=== PATIENT | female | born 1995 | race Caucasian/White ===

== ENCOUNTER 2016-09-08 21:42 | Observation (INO) | payer OTHER, MEDICAID ==
[2016-09-09] MEDS ORDERED: ONDANSETRON HCL INJ/PF 4 MG/2 ML SDV IV ONE (01:34)
[2016-09-09] MEDS ORDERED: NORMAL SALINE 1000 ML 1,000 ML IV ONE ×2 (01:34→05:46)
[2016-09-09] MEDS ORDERED: PROMETHAZINE HCL INJ 25 MG/1 ML VIAL IM ONE (01:34)
[2016-09-09] MEDS ORDERED: PROMETHAZINE HCL INJ 50 MG/1 ML VIAL IM ONE (03:07)
[2016-09-09] MEDS ORDERED: PROMETHAZINE HCL INJ 50 MG/1 ML VIAL ONE (03:21)
[2016-09-09] MEDS ORDERED: MAG HYDROX/AL HYDROX/SIMETH SUSP 30 ML UDCUP PO ONE (03:30)
--- NOTE | 2016-09-09 03:34 | ER Document Report ---
ED General - General Chief Complaint: Nausea/Vomiting/Diarrhea Stated Complaint: NAUSEA/VOMITING Time Seen by Provider: 09/09/16 01:22 Notes: Patient is a 20-year-old female who is well-known to the ER due to history of nausea vomiting. She is to be seen here very frequently during her because she had multiple times of coming in with intractable vomiting. She was worked up extensively here he also had psychiatric consult due to a lot of felt to be psychiatric related. Patient returns today saying that she is having vomiting again and is unsure if she is again. She denies any fevers. No significant abdominal pain. She has had some diarrhea. No other complaints at this time. No dysuria. No abnormal vaginal discharge or bleeding. TRAVEL OUTSIDE OF THE [place] IN LAST 30 DAYS: No - Related Data Allergies/Adverse Reactions: No Known Allergies Allergy (Verified 02/21/16 13:33) Past Medical History - Social History Smoking Status: Never Smoker Frequency of alcohol use: None Drug Abuse: None Family History: Reviewed & Not Pertinent - Past Medical History Cardiac Medical History: Denies: Hx Congestive Heart Failure, Hx Heart Attack, Hx Hypertension Pulmonary Medical History: Reports: Hx Asthma Denies: Hx Bronchitis, Hx COPD, Hx Pneumonia, Hx Tuberculosis Neurological Medical History: Denies: Hx Seizures Renal/ Medical History: Denies: Hx End Stage Renal Disease, Hx Kidney Stones, Hx Peritoneal Dialysis GI Medical History: Reports: Hx Gastroesophageal Reflux Disease. Denies: Hx Ulcer Musculoskeltal Medical History: Denies Hx Arthritis Psychiatric Medical History: Denies: Hx Bipolar Disorder, Hx Depression, Hx Schizophrenia Past Surgical History: Reports: Hx Adenoidectomy, Hx Tonsillectomy - Immunizations Hx Diphtheria, Pertussis, Tetanus Vaccination: Yes Review of Systems - Review of Systems Notes: My Normal Review Basic REVIEW OF SYSTEMS: CONSTITUTIONAL : Denies fever, chills, or sweats. Denies recent illness. CARDIOVASCULAR: Denies chest pain. RESPIRATORY: Denies cough, cold, or chest congestion. Denies shortness of breath, difficulty breathing, or wheezing. GASTROINTESTINAL: Denies abdominal pain. vomiting and diarrhea. GENITOURINARY: Denies difficulty urinating, painful urination, burning, frequency, or blood in urine. FEMALE GENITOURINARY: Denies vaginal bleeding, abnormal or irregular periods. MUSCULOSKELETAL: Denies neck or back pain or joint pain or swelling. SKIN: Denies rash or skin lesions. NEUROLOGICAL: Denies altered mental status or loss of consciousness. Denies headache. Denies weakness or paralysis or loss of use of either side. Denies problems with gait or speech. Denies sensory or motor loss. ALL OTHER SYSTEMS REVIEWED AND NEGATIVE. Physical Exam - Vital signs Vitals: Temp Pulse Resp BP Pulse Ox 98.1 F 94 H 15 111/70 100 09/08/16 21:52 09/08/16 21:52 09/08/16 21:52 09/08/16 21:52 09/08/16 21:52 - Notes Notes: General Appearance: Well nourished, alert, cooperative, no acute distress, no obvious discomfort. Into the room the patient is sleeping in the bed comfortably. When I wake her up she starts to shake and says she chills. Vitals: reviewed, See vital signs table. Head: no swelling or tenderness to the head Eyes: PERRL, EOMI, Conjuctiva clear Mouth: No decreasd moisture Throat: No tonsillar inflammation, No airway obstruction, No lymphadenopathy Lungs: No wheezing, No rales, No rhonci, No accessory muscle use, good air exchange bilaterally. Heart: Normal rate, Regular rythm, No murmur, no rub Abdomen: Normal BS, soft, No rigidity, No abdominal tenderness, No guarding, no rebound, no abdominal masses, no organomegaly Extremities: strength 5/5 in all extremities, good pulses in all extremities, no swelling or tenderness in the extremities, no edema. Skin: warm, dry, appropriate color, no rash Neuro: speech clear, oriented x 3, normal affect, responds appropriately to questions. Course - Vital Signs Vital signs: Temp Pulse Resp BP Pulse Ox 98.8 F 93 H 13 116/66 97 09/09/16 01:57 09/09/16 01:57 09/09/16 01:57 09/09/16 01:57 09/09/16 01:57 - Laboratory Result Diagrams: 09/09/16 03:43 09/09/16 03:43 Laboratory results interpreted by me: 09/09/16 09/09/16 09/09/16 03:00 03:43 03:43 Carbon Dioxide 18 L Beta HCG, Quant 14707.00 H Urine Protein 30 H Urine Ketones 80 H Urine Ascorbic Acid 40 H Urine HCG, Qual POSITIVE H - Transfer of Care Notes: 09/09/16 05:48 Patient is again. Initially seen as if her vomiting was under control. I was can discharge her home with Phenergan as well as likely just. Patient initially was agreeable to this. When they went to discharge her sister from [facility] if she had to vomit again and then said that she did not remember talking to me about being discharged home. She says she does not feel she can go home and she feels unwell. Patient's ketones are 80 on her urine. Her CO2 is 18. I have ordered an ultrasound to see if how far along she is in . She denies any other infectious symptoms. I did speak with Dr. Ritter, piercing mill operator on-call, who agrees to admit the patient. Dictation of this chart was performed using voice recognition software; therefore, there may be some unintended grammatical errors. Discharge - Discharge Clinical Impression: Hyperemesis gravidarum Condition: Stable Disposition: ADMITTED OBSERVATION Admitting Provider: Dr. Chahal Unit Admitted: Post Additional Instructions: Hyperemesis Gravidarum Hyperemesis gravidarum is the medical term for severe vomiting during . We don't know exactly why it occurs, but it's a common problem. Dehydration can occur. This reduces blood flow to the placenta, decreasing the baby's nourishment. The baby will also become dehydrated. There can be harmful changes in blood sodium, potassium, or acid balance. Our goal is to correct, and prevent, dehydration. For severe cases, we give IV fluids. Antinausea medication will be prescribed. (Don't be concerned about " defects" -- the risk to you and your baby from the hyperemesis is the biggest problem. The antinausea medication is very safe at this stage of .) Call the doctor if you have vaginal bleeding, abdominal pain, severe lightheadedness or weakness, or other alarming symptoms. Please return to the ER immediately if you have intractable vomiting, fevers, abdominal pain, vaginal bleeding, or feel unwell. Please follow up closely with your DATA SECURITY ADMINISTRATOR physician for further treatment and evaluation of your . Please do not smoke cigarettes or marijuana while . Avoid alcohol. Start taking vitamins. Prescriptions: Doxylamine/Pyridoxine HCl [Abdirahman Garrison 10-10 mg Tablet] 1 each PO TID #60 tablet. Promethazine HCl [Phenergan 25 mg Tablet] 1 tab PO Q6H PRN #15 tablet PRN Reason:
[2016-09-09 03:35] LABS: APPEARANCE,URINE SLIGHTLY-CLOUDY; BILIRUBIN,URINE NEGATIVE (NEGATIVE); GLUCOSE, URINE NEGATIVE (NEGATIVE); KETONES,URINE 80 mg/dL (NEGATIVE); LEUKOCYTE ESTERASE,URINE NEGATIVE (NEGATIVE); NITRITE,URINE NEGATIVE (NEGATIVE); PROTEIN,URINE 30 mg/dL (NEGATIVE); URINE SPECIFIC GRAVITY 1.031; UROBILINOGEN,URINE NEGATIVE mg/dL (<2.0)
[2016-09-09 04:00] LABS: ABSOLUTE LYMPHOCYTES (AUTO) 1.3 10^3/uL (0.5-4.7); ABSOLUTE MONOCYTES (AUTO) 0.7 10^3/uL (0.1-1.4); ABSOLUTE NEUT (AUTO) 7.1 10^3/uL (1.7-8.2); BASOPHILS % (AUTO) 0.2 % (0-2); HEMATOCRIT 38.7 % (36.0-47.0); HEMOGLOBIN 12.6 g/dL (12.0-15.5); HGB HCT DIFFERENCE -0.9; LYMPHOCYTES % (AUTO) 13.9 % (13-45); MEAN CORPUSCULAR HEMOGLOBIN 28.3 pg (27.0-33.4); MEAN CORPUSCULAR HGB CONC 32.6 g/dL (32.0-36.0); MEAN CORPUSCULAR VOLUME 87 fl (80-97); MONOCYTES % (AUTO) 8.1 % (3-13); RED BLOOD COUNT 4.46 10^6/uL (3.72-5.28); RED CELL DISTRIBUTION WIDTH 13.6 % (11.5-14.0); SEGMENTED NEUTROPHILS % (AUTO) 77.8 % (42-78); WHITE BLOOD COUNT 9.2 10^3/uL (4.0-10.5)
[2016-09-09 04:04] LABS: ALANINE AMINOTRANSFERASE 25 U/L (5-35); ALBUMIN 4.1 g/dL (3.7-5.6); ALKALINE PHOSPHATASE 100 U/L (50-135); ANION GAP 16 (5-19); ASPARTATE AMINO TRANSFERASE 18 U/L (5-30); BILIRUBIN,DIRECT 0.2 mg/dL (0.0-0.4); BILIRUBIN,TOTAL 0.7 mg/dL (0.2-1.3); BLOOD UREA NITROGEN 10 mg/dL (7-20); CALCIUM 8.8 mg/dL (8.4-10.2); CARBON DIOXIDE 18 mmol/L (22-30); CHLORIDE 106 mmol/L (98-107); CREATININE RESULT 0.56 mg/dL (0.52-1.25); GLUCOSE 104 mg/dL (75-110); LIPASE 25.3 U/L (23-300); POTASSIUM 3.6 mmol/L (3.6-5.0); SODIUM 139.7 mmol/L (137-145)
[2016-09-09] MEDS ORDERED: METOCLOPRAMIDE HCL INJ/PF 10 MG/2 ML SDV IV ONE (04:07)
[2016-09-09 04:21] LABS: URINE BARBITURATES SCREEN NEGATIVE; URINE METHADONE SCREEN NEGATIVE; URINE OPIATES LOW NEGATIVE; URINE PHENCYCLIDINE SCREEN NEGATIVE
[2016-09-09] MEDS ORDERED: POTASSI CL 20 MEQ/D5-1/2NS 1L 1000 ML IV PRN (06:53)
--- NOTE | 2016-09-09 07:08 | RADIOLOGY REPORT (SQ) ---
EXAM DESCRIPTION: U/S OB TRANSVAG W/DOPPLER COMPLETED DATE/TIME: 09/09/2016 6:54 am REASON FOR STUDY: COMPARISON: None. TECHNIQUE: Transvaginal static and realtime grayscale images acquired of the pelvis. Additional nikky cted spectral and color Doppler images recorded. All images stored on PACs. [facility] [place] LIMITATIONS: Suboptimal bladder emptying. FINDINGS: FETUS: Living intrauterine . EGA: 6 weeks 5 days. RONEL: 04/30/2017. FHR: 115 beats per minute. SUBCHORIONIC BLEED: No. SIZE OF BLEED: Not applicable. UTERUS: No masses. No anomalies. CERVICAL LENGTH: 2.7 cm Closed. RIGHT ADNEXA: Normal ovary with normal vascular flow. No adnexal free fluid. No adnexal masses. 4.6 cm. LEFT ADNEXA: Normal ovary with normal vascular flow. No adnexal free fluid. No adnexal masses. 2.6 cm including a 1.6 cm likely corpus luteal cyst. FREE FLUID: None. OTHER: No other significant finding. IMPRESSION: LIVING INTRAUTERINE . EGA 6 weeks 5 days Trimester of : First - 0 to 13 weeks. TECHNICAL DOCUMENTATION: JOB ID: [id number] [employer]- All Rights Reserved
[2016-09-09] MEDS: PYRIDOXINE HCL 50 MG TABLET PO SCH ×2 (09:26→16:04)
[2016-09-09] MEDS: ONDANSETRON HCL INJ/PF 4 MG/2 ML SDV IV SCH ×2 (09:26→18:59)
[2016-09-09] MEDS: FAMOTIDINE INJ/PF 20 MG/2 ML SDV IV SCH ×2 (09:26→18:59)
[2016-09-09] MEDS ORDERED: [UNRECOGNIZED DRUG - REMARK] IV SCH ×2 (10:00)
[2016-09-09] MEDS ORDERED: [UNRECOGNIZED DRUG - REMARK] IV SCH ×3 (10:00)
[2016-09-09] MEDS: METOCLOPRAMIDE HCL 10 MG TABLET PO SCH ×2 (10:30→16:05)
--- NOTE | 2016-09-09 18:05 | PDOC DISCHARGE SUMMARY ---
Final Diagnosis Discharge Date: 09/09/16 - Final Diagnosis (1) Hyperemesis gravidarum with dehydration Is this a current diagnosis for this admission?: Yes Discharge Data - Discharge Medication Home Medications: Metoclopramide HCl [Reglan 10 mg Tablet] 10 mg PO ACHS #30 tablet 09/09/16 Gestational Age: 14 Admission Note: She was admitted for nausea and vomiting in early . She is now feeling much better and wishes to go home with reglan and zofran. She will followup as scheduled. - Diagnosis Test Laboratory: Temp Pulse Resp BP Pulse Ox 98.6 F 79 15 80/40 L 98 09/09/16 15:47 09/09/16 15:47 09/09/16 15:47 09/09/16 15:47 09/09/16 15:47 - Discharge information/Instructions Discharge Activity: Activity As Tolerated Discharge Diet: As Tolerated Disposition: HOME, SELF-CARE Follow up with: [facility] - Follow up with OB provider as scheduled. in: 1, Weeks - followup with ob provider as scheduled
[2016-09-09 18:45] VITALS: BP 108/78
== END 2016-09-09 19:30 | disposition home or self-care (01) ==
LOC: ER 21:42 → 2S 09-09 06:10 → UNDOADMOB 09-09 07:13 → EH 09-09 07:13 → 2S 09-09 08:05
PROVIDERS: ADMIT Specialist; ATTEND Specialist
DX: O21.1 Hyperemesis gravidarum with metabolic disturbance (principal); O99.341 Other mental disorders complicating pregnancy, first trimester; F29 Unspecified psychosis not due to a substance or known physiological condition; Z3A.01 Less than 8 weeks gestation of pregnancy; Z87.19 Personal history of other diseases of the digestive system
CPT/HCPCS: 99285; 96361; 96374; 96375; 36415; 84702; 83690; 85025; 81025; 80053; 81001; 80307; 76817; 93976; J2765; J3480 ×2; J2550; J3490 ×2; J2405; J7030; S0028

== ENCOUNTER 2016-10-04 13:42 | Emergency (ER) | payer OTHER, MEDICAID ==
[2016-10-04] MEDS ORDERED: METOCLOPRAMIDE HCL 10 MG TABLET PO ONE (13:53)
[2016-10-04] MEDS ORDERED: ONDANSETRON 4 MG TAB.RAPDIS PO ONE (13:53)
--- NOTE | 2016-10-04 14:04 | ER Document Report ---
ED GI/ - General Chief Complaint: Nausea/Vomiting/Diarrhea Stated Complaint: VOMITING,NAUSEA Time Seen by Provider: 10/04/16 13:52 Mode of Arrival: Ambulatory Information source: Patient Notes: Patient is a 20-year-old who presents to the ER approximately 9 weeks with nausea vomiting and diarrhea 2 days. Patient states that her bowel movement this morning was white, sam in color. She admits to eating calamari for the first time yesterday. She denies fever/chills, denies abd pain. TRAVEL OUTSIDE OF THE [place] IN LAST 30 DAYS: No - Related Data Allergies/Adverse Reactions: No Known Allergies Allergy (Verified 02/21/16 13:33) Past Medical History - General Information source: Patient - Social History Smoking Status: Unknown if Ever Smoked Family History: Reviewed & Not Pertinent - Past Medical History Cardiac Medical History: Denies: Hx Congestive Heart Failure, Hx Heart Attack, Hx Hypertension Pulmonary Medical History: Reports: Hx Asthma Denies: Hx Bronchitis, Hx COPD, Hx Pneumonia, Hx Tuberculosis Neurological Medical History: Denies: Hx Seizures Renal/ Medical History: Denies: Hx End Stage Renal Disease, Hx Kidney Stones, Hx Peritoneal Dialysis GI Medical History: Reports: Hx Gastroesophageal Reflux Disease. Denies: Hx Ulcer Musculoskeltal Medical History: Denies Hx Arthritis Psychiatric Medical History: Denies: Hx Bipolar Disorder, Hx Depression, Hx Schizophrenia Past Surgical History: Reports: Hx Adenoidectomy, Hx Tonsillectomy - Immunizations Hx Diphtheria, Pertussis, Tetanus Vaccination: Yes Review of Systems - Review of Systems Constitutional: No symptoms reported EENT: No symptoms reported Cardiovascular: No symptoms reported Respiratory: No symptoms reported Gastrointestinal: See HPI Genitourinary: No symptoms reported Female Genitourinary: No symptoms reported Musculoskeletal: No symptoms reported Skin: No symptoms reported Hematologic/Lymphatic: No symptoms reported Neurological/Psychological: No symptoms reported Physical Exam - Notes Notes: PHYSICAL EXAMINATION: GENERAL: Well-appearing and in no acute distress. HEAD: Atraumatic, normocephalic. EYES: Pupils equal round and reactive to light, extraocular movements intact, sclera anicteric, conjunctiva are normal. NECK: Normal range of motion, supple without lymphadenopathy LUNGS: CTAB and equal. No wheezes rales or rhonchi. HEART: Regular rate and rhythm without murmurs ABDOMEN: Soft, no tenderness. No guarding, no rebound BACK: no vertebral tenderness, normal ROM GI/: no CVA tenderness EXTREMITIES: Normal range of motion, no pitting edema. No cyanosis. NEUROLOGICAL: Cranial nerves grossly intact. Normal sensory/motor exams. PSYCH: Normal mood, normal affect. SKIN: Warm, Dry, normal turgor, no rashes or lesions noted Discharge - Discharge Clinical Impression: Nausea/vomiting in Condition: Stable Disposition: HOME, SELF-CARE Additional Instructions: Return immediately for any new or worsening symptoms. Follow up with primary care provider, call tomorrow to make followup appointment. Prescriptions: Metoclopramide HCl [Reglan 10 mg Tablet] 1 - 2 tab PO ASDIR PRN #25 tablet PRN Reason: Ondansetron [Zofran Odt 4 mg Tablet] 1 - 2 tab PO Q4H PRN #30 tab.rapdis PRN Reason: For Nausea/Vomiting
[2016-10-04] MEDS ORDERED: ONDANSETRON HCL INJ/PF 4 MG/2 ML SDV IV ONE (14:10)
[2016-10-04] MEDS ORDERED: METOCLOPRAMIDE HCL INJ/PF 10 MG/2 ML SDV IV ONE (14:10)
[2016-10-04 14:53] VITALS: BP 111/73
== END 2016-10-04 14:52 | disposition home or self-care (01) ==
LOC: ER 13:42
DX: O21.9 Vomiting of pregnancy, unspecified (principal); R19.7 Diarrhea, unspecified; Z3A.09 9 weeks gestation of pregnancy
CPT/HCPCS: 99283; 96374; 96375; J2765; J2405

== ENCOUNTER 2016-10-05 03:13 | Emergency (ER) | payer OTHER ==
[2016-10-05] MEDS ORDERED: ONDANSETRON HCL INJ/PF 4 MG/2 ML SDV IV ONE ×2 (03:17→03:48)
[2016-10-05] MEDS ORDERED: METOCLOPRAMIDE HCL INJ/PF 10 MG/2 ML SDV IV ONE (03:17)
[2016-10-05] MEDS ORDERED: NORMAL SALINE 1000 ML 1,000 ML IV ONE (03:17)
[2016-10-05] MEDS ORDERED: DIPHENHYDRAMINE HCL 50 MG/ML VIAL IV ONE (03:18)
[2016-10-05 03:38] LABS: ABSOLUTE LYMPHOCYTES (AUTO) 1.2 10^3/uL (0.5-4.7); ABSOLUTE MONOCYTES (AUTO) 0.7 10^3/uL (0.1-1.4); ABSOLUTE NEUT (AUTO) 12.4 10^3/uL (1.7-8.2); BASOPHILS % (AUTO) 0.1 % (0-2); HEMATOCRIT 39.1 % (36.0-47.0); HEMOGLOBIN 12.9 g/dL (12.0-15.5); HGB HCT DIFFERENCE -0.4; LYMPHOCYTES % (AUTO) 8.4 % (13-45); MEAN CORPUSCULAR HEMOGLOBIN 28.2 pg (27.0-33.4); MEAN CORPUSCULAR HGB CONC 33.1 g/dL (32.0-36.0); MEAN CORPUSCULAR VOLUME 85 fl (80-97); RED BLOOD COUNT 4.59 10^6/uL (3.72-5.28); RED CELL DISTRIBUTION WIDTH 13.8 % (11.5-14.0); SEGMENTED NEUTROPHILS % (AUTO) 86.5 % (42-78); WHITE BLOOD COUNT 14.4 10^3/uL (4.0-10.5)
[2016-10-05] MEDS ORDERED: MORPHINE SULFATE 10 MG/ML INJ IV ONE (03:48)
[2016-10-05] MEDS ORDERED: METOCLOPRAMIDE HCL ORAL SOLN 10 MG/10 ML UDCUP PO ONE (03:49)
[2016-10-05] MEDS ORDERED: MAG HYDROX/AL HYDROX/SIMETH SUSP 30 ML UDCUP PO ONE (03:49)
[2016-10-05] MEDS ORDERED: LIDOCAINE 2% VISCOUS SOLN 20 ML UDCUP PO ONE (03:49)
[2016-10-05] MEDS ORDERED: FAMOTIDINE INJ/PF 20 MG/2 ML SDV IV ONE (03:51)
[2016-10-05 04:04] VITALS: BP 127/64
--- NOTE | 2016-10-05 04:04 | ER Document Report ---
ED General - General Chief Complaint: Nausea/Vomiting Stated Complaint: NAUSEA/VOMITING Time Seen by Provider: 10/05/16 03:16 Notes: Patient is a 20-year-old female who presents to the ER with complaint of epigastric abdominal pain and vomiting. She is well-known to the ED due to a previous history of hyperemesis gravidarum. She was admitted back in August. She was placed on Reglan and Zofran. She says she ran out of these medications and has been vomiting. She was seen in the ER yesterday and given a prescription for Zofran and Reglan but did not have it filled. She therefore came to the ER. On previous drug screen she has been positive for marijuana but patient denies smoking marijuana anymore. TRAVEL OUTSIDE OF THE [place] IN LAST 30 DAYS: No - Related Data Allergies/Adverse Reactions: No Known Allergies Allergy (Verified 02/21/16 13:33) Past Medical History - Social History Smoking Status: Never Smoker Frequency of alcohol use: None Drug Abuse: None Family History: Reviewed & Not Pertinent - Past Medical History Cardiac Medical History: Denies: Hx Congestive Heart Failure, Hx Heart Attack, Hx Hypertension Pulmonary Medical History: Reports: Hx Asthma Denies: Hx Bronchitis, Hx COPD, Hx Pneumonia, Hx Tuberculosis Neurological Medical History: Denies: Hx Seizures Renal/ Medical History: Denies: Hx End Stage Renal Disease, Hx Kidney Stones, Hx Peritoneal Dialysis GI Medical History: Reports: Hx Gastroesophageal Reflux Disease. Denies: Hx Ulcer Musculoskeltal Medical History: Denies Hx Arthritis Psychiatric Medical History: Denies: Hx Bipolar Disorder, Hx Depression, Hx Schizophrenia Past Surgical History: Reports: Hx Adenoidectomy, Hx Tonsillectomy - Immunizations Hx Diphtheria, Pertussis, Tetanus Vaccination: Yes Review of Systems - Review of Systems Notes: My Normal Review Basic REVIEW OF SYSTEMS: CONSTITUTIONAL : Denies fever, chills, or sweats. Denies recent illness. EENT: Denies eye, ear, throat, or mouth pain or symptoms. Denies nasal or sinus congestion. CARDIOVASCULAR: Denies chest pain. RESPIRATORY: Denies cough, cold, or chest congestion. Denies shortness of breath, difficulty breathing, or wheezing. GASTROINTESTINAL: Epigastric abdominal pain. Vomiting. GENITOURINARY: Denies difficulty urinating, painful urination, burning, frequency, or blood in urine. FEMALE GENITOURINARY: Denies vaginal bleeding, abnormal or irregular periods. LMP: Currently MUSCULOSKELETAL: Denies neck or back pain or joint pain or swelling. SKIN: Denies rash or skin lesions. NEUROLOGICAL: Denies altered mental status or loss of consciousness. Denies headache. Denies weakness or paralysis or loss of use of either side. Denies problems with gait or speech. Denies sensory or motor loss. ALL OTHER SYSTEMS REVIEWED AND NEGATIVE. Physical Exam - Vital signs Vitals: Temp Pulse Resp BP Pulse Ox 98.4 F 78 22 127/64 H 98 10/05/16 03:23 10/05/16 03:23 10/05/16 03:23 10/05/16 03:23 10/05/16 03:23 - Notes Notes: General Appearance: Well nourished, alert, cooperative, no acute distress, no obvious discomfort. Dry heaving and spitting into an emesis bag. Vitals: reviewed, See vital signs table. Head: no swelling or tenderness to the head Eyes: PERRL, EOMI, Conjuctiva clear Mouth: No decreasd moisture Throat: No tonsillar inflammation, No airway obstruction, No lymphadenopathy Abdomen: Normal BS, soft, No rigidity, mild to moderate epigastric abdominal tenderness to palpation, No guarding, no rebound, no abdominal masses, no organomegaly Extremities: strength 5/5 in all extremities, good pulses in all extremities, no swelling or tenderness in the extremities, no edema. Skin: warm, dry, appropriate color, no rash Neuro: speech clear, oriented x 3, normal affect, responds appropriately to questions. Course - Re-evaluation Re-evalutation: 10/05/16 05:56 Patient has been reevaluated many times. She has not vomited in several hours. She drank liquids without vomiting. I went and talked her informed her that she was being discharged. When I first reviewed her laboratory findings with her, she woke up and she agreed to being discharged. When the nurse brought her the discharge paperwork she started crying saying that she did not want to leave. I went back and talked to her again. Patient says that she does not want to be discharged and she wants to stay. Patient has done this multiple times in previous visits the ER for the same thing. It is really unclear to me as to why she initially always agrees to discharge but then immediately starts crying becoming very emotionally upset whenever we bring her to discharge paperwork. During her previous admissions in the past she has been evaluated by psychiatry. She herself denies that she has any psychiatric issue. I asked her at length if she felt safe at home or if there was dangerous at home and if that is why she did not want to go home. Patient says that she is safe at home and that that has nothing to do with it. I informed her that her electrolytes are normal and that she has not had any further vomiting and that we could discharge her home on the medications. She says that she still has some pain in the epigastric region even though she was denying this when I went and talked to her earlier. Patient says that she has always had pain in the epigastric region since she has been here and that she needs to stay because of this. I informed her that this is not an admittable reason to stay as the treatment for this is Tylenol and Pepcid which can be taken at home. I have also prescribed her Pepcid. At this time I do not feel the patient meets any criteria for admission (1. no further vomiting, 2. normal electrolytes and renal function, 3. benign abdominal exam) and she will be discharged home. She is encouraged to return to the ER if she has recurrent vomiting and the medications are not helping her. I strongly encouraged her to actually fill the medications this time and start taking them. I have discharged her home with a Zofran to go pack so that she has medications until her prescriptions are able to be filled. She denied any dysuria or urinary symptoms therefore I do not feel it is necessary to wait for a urine sample. Urinalysis was ordered but the patient urinated as soon as she got here and did not give us a urine sample. Dictation of this chart was performed using voice recognition software; therefore, there may be some unintended grammatical errors. 10/05/16 05:58 10/05/16 06:00 10/05/16 06:05 - Vital Signs Vital signs: Temp Pulse Resp BP Pulse Ox 98.4 F 78 22 127/64 H 98 10/05/16 03:23 10/05/16 03:23 10/05/16 03:23 10/05/16 03:23 10/05/16 03:23 - Laboratory Result Diagrams: 10/05/16 03:22 10/05/16 04:30 Laboratory results interpreted by me: 10/05/16 10/05/16 03:22 04:30 WBC 14.4 H Seg Neutrophils % 86.5 H Lymphocytes % 8.4 L Absolute Neutrophils 12.4 H Carbon Dioxide 19 L Creatinine 0.48 L Beta HCG, Quant 19601.00 H Procedures - Ultrasound/Bedside Ultrasound/Bedside Notes: 10/05/16 04:20 Bedside ultrasound shows an IUP with a heart rate of 172 bpm. Discharge - Discharge Clinical Impression: Hyperemesis gravidarum Condition: Good Disposition: HOME, SELF-CARE Additional Instructions: Please fill the prescriptions for the reglan and Zofran that were giving to you earlier. Please take the pepcid as well. The pepcid will help with your burning in your stomach. please return to the ER if you have recurrent vomiting that is not improving with the Zofran and reglan. [facility] Please take vitamins. Prescriptions: Famotidine [Pepcid 20 mg Tablet] 20 mg PO DAILY #30 tablet Forms: Return to Work
[2016-10-05] MEDS ORDERED: PROMETHAZINE HCL INJ 25 MG/1 ML VIAL IM ONE (04:06)
[2016-10-05] MEDS ORDERED: PROMETHAZINE HCL INJ 25 MG/1 ML VIAL ONE (04:39)
[2016-10-05 04:50] LABS: ALANINE AMINOTRANSFERASE 28 U/L (5-35); ALBUMIN 4.2 g/dL (3.7-5.6); ALKALINE PHOSPHATASE 89 U/L (50-135); ANION GAP 16 (5-19); ASPARTATE AMINO TRANSFERASE 17 U/L (5-30); BILIRUBIN,DIRECT 0.3 mg/dL (0.0-0.4); BILIRUBIN,TOTAL 0.7 mg/dL (0.2-1.3); BLOOD UREA NITROGEN 12 mg/dL (7-20); CALCIUM 8.6 mg/dL (8.4-10.2); CARBON DIOXIDE 19 mmol/L (22-30); CHLORIDE 106 mmol/L (98-107); CREATININE RESULT 0.48 mg/dL (0.52-1.25); GLUCOSE 102 mg/dL (75-110); POTASSIUM 3.6 mmol/L (3.6-5.0); SODIUM 140.8 mmol/L (137-145); TOTAL PROTEIN 6.9 g/dL (6.3-8.2)
[2016-10-05] MEDS ORDERED: ONDANSETRON ODT 4 MG TAB (6 TAB/DSPK) PO PRN (05:35)
== END 2016-10-05 05:52 | disposition home or self-care (01) ==
LOC: ER 03:13
DX: O21.0 Mild hyperemesis gravidarum (principal); T45.0X6A Underdosing of antiallergic and antiemetic drugs, initial encounter; Z91.128 Patient's intentional underdosing of medication regimen for other reason; Z91.14 Patient's other noncompliance with medication regimen; O26.899 Other specified pregnancy related conditions, unspecified trimester; R10.13 Epigastric pain; O99.519 Diseases of the respiratory system complicating pregnancy, unspecified trimester; J45.909 Unspecified asthma, uncomplicated; Z87.19 Personal history of other diseases of the digestive system; Z3A.00 Weeks of gestation of pregnancy not specified
CPT/HCPCS: 99284; 96372; 96374; 96375; 36415; 84702; 85025; 80053; J1200; J3490; J2765; J2270; J2550; J2405; J7030; S0028

== ENCOUNTER 2016-10-05 07:04 | Inpatient (IN) | payer OTHER ==
--- NOTE | 2016-10-05 07:56 | ER Document Report ---
ED GI/ - General Chief Complaint: Abdominal Pain Stated Complaint: ABDOMINAL PAIN Time Seen by Provider: 10/05/16 07:56 Mode of Arrival: Ambulatory Information source: Patient Notes: 20 yo female 9 weeks c/o dull constant epigastric pain and vomiting for 2 days. 1 previous episode during this in August, admitted by dr. pickens. No abd. surgeries. Crying and rocking with pain and persistant dry heaving. Had diarrhea twice. No hx. gallbladder problems. Hx of similar problems with last year, several admissions. Dr. Feliz evaluated her , no egd done. Pt. fell asleep sitting up after medications given. IV infusing. No vaginal bleeding or pelvic pain. TRAVEL OUTSIDE OF THE [place] IN LAST 30 DAYS: No - Related Data Allergies/Adverse Reactions: No Known Allergies Allergy (Verified 10/05/16 07:12) Past Medical History - General Information source: Patient - Social History Smoking Status: Former Smoker Frequency of alcohol use: None Drug Abuse: Marijuana - in poast Lives with: Family Family History: Reviewed & Not Pertinent Pulmonary Medical History: Reports: Hx Asthma GI Medical History: Reports: Hx Gastroesophageal Reflux Disease Musculoskeltal Medical History: Past Surgical History: Reports: Hx Adenoidectomy, Hx Tonsillectomy - Immunizations Hx Diphtheria, Pertussis, Tetanus Vaccination: Yes Review of Systems - Review of Systems Constitutional: No symptoms reported EENT: No symptoms reported Cardiovascular: No symptoms reported Respiratory: No symptoms reported Gastrointestinal: See HPI Genitourinary: No symptoms reported Female Genitourinary: No symptoms reported Musculoskeletal: No symptoms reported Skin: No symptoms reported Hematologic/Lymphatic: No symptoms reported Neurological/Psychological: No symptoms reported Physical Exam - Vital signs Vitals: Temp Pulse Resp BP Pulse Ox 98.2 F 93 H 20 132/81 H 96 10/05/16 07:12 10/05/16 07:12 10/05/16 07:12 10/05/16 07:12 10/05/16 07:12 Interpretation: Normal - General General appearance: Appears well, Alert In distress: None - HEENT Head: Normocephalic, Atraumatic Eyes: Normal Conjunctiva: Normal Pupils: PERRL Mouth/Lips: Normal Pharynx: Normal Neck: Supple. No: Lymphadenopathy - Respiratory Respiratory status: No respiratory distress Chest status: Nontender Breath sounds: Normal Chest palpation: Normal - Cardiovascular Rhythm: Regular Heart sounds: Normal auscultation Murmur: No - Abdominal Inspection: Normal Distension: No distension Bowel sounds: Normal Tenderness: Tender - tender but soft upper abdomen all the way across, right more than left Organomegaly: No organomegaly. No: Hepatomegaly, Splenomegaly - Back Back: Normal, Nontender. No: CVA tenderness - Extremities General upper extremity: Normal inspection, Nontender, Normal color, Normal ROM , Normal temperature General lower extremity: Normal inspection, Nontender, Normal color, Normal ROM , Normal temperature, Normal weight bearing. No: Neeraj's sign - Neurological Neuro grossly intact: Yes Cognition: Normal Orientation: AAOx4 [place] Coma Scale Eye Opening: Spontaneous [place] Coma Scale Verbal: Oriented [place] Coma Scale Motor: Obeys Commands Hernandez Coma Scale Total: 15 Speech: Normal Motor strength normal: LUE, RUE, LLE, RLE Sensory: Normal - Psychological Associated symptoms: Normal affect, Normal mood - Skin Skin Temperature: Warm Skin Moisture: Dry Skin Color: Normal Course - Re-evaluation Re-evalutation: 10/05/16 10:37 Viable 10 week , normal right upper quadrant ultrasound. 10/05/16 11:26 3 liters infused. pt asleep, having the nurse feed crackers and gingerale, vitals stable, no vomiting since I saw her. plan to send home. to have her fill the prescriptions. 10/05/16 11:[address] lang, send home with reglan, tylenol, dyclegis, prevacid 10/05/16 12:22 pt vomited 3 times, crying, begging to stay in the hospital, that she didn't feel well enough. Afraid that she will stop breathing at home. I spoke with her manjit, during this conversation she vomited again, so called. dr. yi, she will admit to 2nd floor, keep pt. she is well known to that practice. Keep her NPO. - Vital Signs Vital signs: Temp Pulse Resp BP Pulse Ox 98.7 F 87 18 109/57 L 97 10/05/16 11:27 10/05/16 11:27 10/05/16 11:27 10/05/16 11:27 10/05/16 11:27 - Laboratory Result Diagrams: 10/05/16 08:13 07/15/17 08:13 Laboratory results interpreted by me: 10/05/16 10/05/16 10/05/16 08:13 08:13 08:13 WBC 11.1 H Seg Neutrophils % 87.4 H Lymphocytes % 7.6 L Absolute Neutrophils 9.7 H Carbon Dioxide 17 L Creatinine 0.49 L Urine Protein 100 H Urine Ketones 80 H Discharge - Discharge Clinical Impression: viable 10 week , Hyperemesis gravidarum, Upper abdominal pain, Dehydration Condition: Stable Disposition: ADMITTED INPATIENT Admitting Provider: [facility] Instructions: Antinausea Medication ([facility]), Dehydration ([facility]), Hyperemesis Gravidarum ([facility]), Intravenous (IV) Fluids ([facility]), Reglan ([facility]), Acid-Suppressing Medication ([facility]), Ob-Burial [employer] Additional Instructions: to er if worse see obgyn for follow up take the diclegis daily get your reglan filled, and take up to four times per day eat frequent small meals Please complete the patient satisfaction survey if you get one, and return it.. If you do not receive a survey, then you can go to the [facility] website, [email or web address] and place your comments about your very good care. Thank you very much. It was a pleasure being your medical provider today. Prescriptions: Doxylamine/Pyridoxine HCl [Abdirahman Garrison 10-10 mg Tablet] 1 each PO DAILY #30 tablet. Lansoprazole [Prevacid 30 Mg Odt Tablet] 30 mg PO DAILY #30 tab.rap.
[2016-10-05] MEDS ORDERED: NORMAL SALINE 1000 ML 1,000 ML IV ONE ×3 (08:44→09:58)
[2016-10-05] MEDS ORDERED: DIPHENHYDRAMINE HCL 50 MG/ML VIAL IV ONE ×2 (08:46→21:30)
[2016-10-05] MEDS ORDERED: PROCHLORPERAZINE EDISYLATE INJ 10 MG/2 ML VIAL IV ONE (08:46)
[2016-10-05] MEDS ORDERED: LANSOPRAZOLE 30 MG TAB.RAP.DR PO ONE (08:49)
[2016-10-05] MEDS ORDERED: FAMOTIDINE INJ/PF 20 MG/2 ML SDV IV ONE (08:49)
[2016-10-05 09:06] LABS: ABSOLUTE LYMPHOCYTES (AUTO) 0.8 10^3/uL (0.5-4.7); ABSOLUTE MONOCYTES (AUTO) 0.5 10^3/uL (0.1-1.4); ABSOLUTE NEUT (AUTO) 9.7 10^3/uL (1.7-8.2); BASOPHILS % (AUTO) 0.1 % (0-2); HEMATOCRIT 37.6 % (36.0-47.0); HEMOGLOBIN 12.3 g/dL (12.0-15.5); HGB HCT DIFFERENCE -0.7; LYMPHOCYTES % (AUTO) 7.6 % (13-45); MEAN CORPUSCULAR HEMOGLOBIN 28.2 pg (27.0-33.4); MEAN CORPUSCULAR HGB CONC 32.8 g/dL (32.0-36.0); MEAN CORPUSCULAR VOLUME 86 fl (80-97); MONOCYTES % (AUTO) 4.9 % (3-13); RED BLOOD COUNT 4.36 10^6/uL (3.72-5.28); RED CELL DISTRIBUTION WIDTH 13.7 % (11.5-14.0); SEGMENTED NEUTROPHILS % (AUTO) 87.4 % (42-78); WHITE BLOOD COUNT 11.1 10^3/uL (4.0-10.5)
[2016-10-05 09:18] LABS: APPEARANCE,URINE SLIGHTLY-CLOUDY; BILIRUBIN,URINE NEGATIVE (NEGATIVE); GLUCOSE, URINE NEGATIVE (NEGATIVE); KETONES,URINE 80 mg/dL (NEGATIVE); LEUKOCYTE ESTERASE,URINE NEGATIVE (NEGATIVE); NITRITE,URINE NEGATIVE (NEGATIVE); PROTEIN,URINE 100 mg/dL (NEGATIVE); URINE SPECIFIC GRAVITY 1.033; UROBILINOGEN,URINE NEGATIVE mg/dL (<2.0)
[2016-10-05 09:29] LABS: ALANINE AMINOTRANSFERASE 25 U/L (5-35); ALBUMIN 4.3 g/dL (3.7-5.6); ALKALINE PHOSPHATASE 89 U/L (50-135); ANION GAP 16 (5-19); ASPARTATE AMINO TRANSFERASE 24 U/L (5-30); BILIRUBIN,DIRECT 0.3 mg/dL (0.0-0.4); BILIRUBIN,TOTAL 0.7 mg/dL (0.2-1.3); BLOOD UREA NITROGEN 10 mg/dL (7-20); CALCIUM 8.8 mg/dL (8.4-10.2); CARBON DIOXIDE 17 mmol/L (22-30); CHLORIDE 106 mmol/L (98-107); CREATININE RESULT 0.49 mg/dL (0.52-1.25); GLUCOSE 104 mg/dL (75-110); LIPASE 40.2 U/L (23-300); POTASSIUM 4.1 mmol/L (3.6-5.0); SODIUM 139.4 mmol/L (137-145); TOTAL PROTEIN 7.1 g/dL (6.3-8.2)
--- NOTE | 2016-10-05 10:33 | RADIOLOGY REPORT (SQ) ---
EXAM DESCRIPTION: U/S ABDOMEN LIMITED W/O DOP COMPLETED DATE/TIME: 10/05/2016 10:12 am REASON FOR STUDY: upper abd pain COMPARISON: None. TECHNIQUE: Dynamic and static grayscale images acquired of the abdomen and recorded on PACS. Additio nal selected color Doppler and spectral images recorded. LIMITATIONS: Mildly limited due to patient cooperation issues. FINDINGS: PANCREAS: No masses. Visualized pancreatic duct normal caliber. LIVER: No masses. Echotexture normal. LIVER VASCULATURE: Normal directional flow of the main portal vein and hepatic veins. GALLBLADDER: No stones. Normal wall thickness. No pericholecystic fluid. ULTRASOUND-DETECTED RIVAS'S SIGN: Negative. INTRAHEPATIC DUCTS AND COMMON DUCT: CBD and intrahepatic ducts normal caliber. No filling defects. INFERIOR VENA CAVA: Normal flow. AORTA: No aneurysm. RIGHT KIDNEY: Normal size. Normal echogenicity. No solid or suspicious masses. No hydronephrosis. No calcifications. PERITONEAL AND RIGHT PLEURAL SPACE: No ascites or effusions. OTHER: No other significant findings. IMPRESSION: NORMAL RIGHT UPPER QUADRANT ULTRASOUND. TECHNICAL DOCUMENTATION: JOB ID: [id number]- All Rights Reserved
--- NOTE | 2016-10-05 10:36 | RADIOLOGY REPORT (SQ) ---
EXAM DESCRIPTION: U/S [id number] TRNABD 1GES W/ODOP COMPLETED DATE/TIME: 10/05/2016 10:16 am REASON FOR STUDY: 9 weeks , abdominal pain COMPARISON: None. TECHNIQUE: Static and Dynamic grayscale imaging performed of gravid uterus using transabdominal appr oach. Additional selected color Doppler and spectral images recorded. All stored on PACS. LIMITATIONS: Patient declined transvaginal scan, mildly limiting. FINDINGS: EGA: 10 week 2 day RONEL: 05/01/2017 EFW: Not calculated. PERCENTILE: Not calculated. VINOD: Grossly appropriate. PLACENTA: No hematoma. HEART RATE: 174 beats per minute. MATERNAL ADNEXA: Not seen. CERVICAL LENGTH: 2.7 cm. Closed. OTHER: No other significant finding. IMPRESSION: LIVING INTRAUTERINE . ESTIMATED GESTATIONAL AGE 10 week 2 day. Trimester of : 1st trimester. TECHNICAL DOCUMENTATION: JOB ID: [id number] [employer]- All Rights Reserved
[2016-10-05] MEDS ORDERED: NORMAL SALINE 1000 ML 1,000 ML with THIAMINE HCL 100 MG, MVI, ADULT NO.1 WITH VIT K 10 ... IV ONE ×4 (12:59)
[2016-10-05] MEDS ORDERED: PROMETHAZINE HCL 25 MG SUPP.RECT PR PRN (13:02)
[2016-10-05] MEDS ORDERED: ONDANSETRON HCL 8 MG TABLET PO PRN (13:03)
[2016-10-05] MEDS: DEXTROSE 5%-1/2 NORMAL SALINE 1,000 ML IV PRN (16:21)
[2016-10-05] MEDS: FAMOTIDINE 20 MG TABLET PO SCH (17:26)
[2016-10-05] MEDS ORDERED: ONDANSETRON 4 MG TAB.RAPDIS PO PRN (17:58)
--- NOTE | 2016-10-05 18:19 | PDOC H&P ---
History of Present Illness Admission Date/PCP: 10/05/16 12:41 Patient complains of: N/V and unable to tolerate po intake History of Present Illness: TIFFANY IBRAHIM is a 20 year old female at 10+3ega (unknown LMP, RONEL by 6+ 5ega US 04/30/2017) presents from the ER with emesis x 6 in ER. Unable to tolerate crackers but was feeling better and ER provider was going to send her home when she reported began dry heaving then throwing up again. She reportedly was begging for admission since arriving in ER and wanting IV meds to help her. She was in the ER 3 times in 24 hours. Past Medical History Gynecological Infection: No Baby 1 Year: 2,016 Delivery: Spontaneous Vaginal Delivery Cardiac Medical History: Denies: Congestive Heart Failure, Myocardial Infarction, Hypertension Pulmonary Medical History: Reports: Asthma Denies: Bronchitis, Chronic Obstructive Pulmonary Disease (COPD), Pneumonia, Tuberculosis Neurological Medical History: Denies: Seizures Renal/ Medical History: Denies: End Stage Renal Disease GI Medical History: Reports: Gastroesophageal Reflux Disease Musculoskeltal Medical History: Denies: Arthritis Psychiatric Medical History: Denies: Bipolar Disorder, Depression Past Surgical History Past Surgical History: Reports: Adenoidectomy, Tonsillectomy Social History Lives with: Family Smoking Status: Former Smoker Frequency of Alcohol Use: None Hx Recreational Drug Use: Yes Drugs: Marijuana Hx Prescription Drug Abuse: No - Advance Directive Resuscitation Status: Full Code Family History Family History: Reviewed & Not Pertinent Parental Family History Reviewed: No Children Family History Reviewed: NA Sibling(s) Family History Reviewed.: NA Medication/Allergy Home Medications: Metoclopramide HCl [Reglan 10 mg Tablet] 1 - 2 tab PO ASDIR PRN #25 tablet 10/04 Ondansetron [Zofran Odt 4 mg Tablet] 1 - 2 tab PO Q4H PRN #30 tab.rapdis Doxylamine/Pyridoxine HCl [Abdirahman Garrison 10-10 mg Tablet] 1 each PO DAILY #30 tablet. 10/05/16 Famotidine [Pepcid 20 mg Tablet] 20 mg PO DAILY #30 tablet 10/05/16 Lansoprazole [Prevacid 30 Mg Odt Tablet] 30 mg PO DAILY #30 tab.rap 10/05/16 Allergies/Adverse Reactions: No Known Allergies Allergy (Verified 10/05/16 07:12) Review of Systems Constitutional: ABSENT: chills, fever(s), headache(s), weight gain, weight loss Gastrointestinal: PRESENT: abdominal pain, heartburn, nausea, vomiting. ABSENT : coffee ground emesis, constipation, diarrhea, dysphagia, hematemesis, hematochezia Genitourinary: ABSENT: dysuria, hematuria Musculoskeletal: ABSENT: joint swelling Integumentary: ABSENT: rash, wounds Neurological: ABSENT: abnormal gait, abnormal speech, confusion, dizziness, focal weakness, syncope Psychiatric: PRESENT: anxiety, depression, other - history psychosis. ABSENT: homidical ideation, suicidal ideation Endocrine: ABSENT: cold intolerance, heat intolerance, polydipsia, polyuria Hematologic/Lymphatic: ABSENT: easy bleeding, easy bruising Physical Exam - Physical Exam Vital Signs: Temp Pulse Resp BP Pulse Ox 98.7 F 87 18 109/57 L 97 10/05/16 11:27 10/05/16 11:27 10/05/16 11:27 10/05/16 11:27 10/05/16 11:27 General appearance: PRESENT: no acute distress, disheveled, well-developed, well -nourished, other - upon arrival in room pt asked that I not touch her because she was peeing down her leg Head exam: PRESENT: atraumatic, normocephalic Respiratory exam: PRESENT: clear to auscultation alyssa, symmetrical, unlabored Cardiovascular exam: PRESENT: RRR, +S1, +S2. ABSENT: diastolic murmur, rubs, systolic murmur Vascular exam: PRESENT: normal capillary refill GI/Abdominal exam: PRESENT: normal bowel sounds, soft. ABSENT: distended, guarding, mass, organolmegaly, rebound, tenderness Rectal exam: PRESENT: deferred Extremities exam: PRESENT: full ROM. ABSENT: calf tenderness, clubbing, pedal edema Musculoskeletal exam: PRESENT: ambulatory Neurological exam: PRESENT: alert, awake, oriented to person, oriented to place , oriented to time, oriented to situation, CN II-XII grossly intact. ABSENT: motor sensory deficit Psychiatric exam: PRESENT: appropriate affect, normal mood, other - fake crying during entire encounter. When I mentioned need for eval by PSych she requested that she not be institutionalized.. ABSENT: homicidal ideation, suicidal ideation Skin exam: PRESENT: dry, intact, warm. ABSENT: cyanosis, rash Result Impressions: Abdomen Ultrasound 10/05/16 09:17 IMPRESSION: NORMAL RIGHT UPPER QUADRANT ULTRASOUND. Obstetrics Ultrasound 10/05/16 09:21 IMPRESSION: LIVING INTRAUTERINE . ESTIMATED GESTATIONAL AGE 10 week 2 day. Trimester of : 1st trimester. Status: Imported from [facility] Assessment & Plan - Diagnosis (1) Hyperemesis gravidarum with dehydration Is this a current diagnosis for this admission?: YesPlan: Admit and place pt NPO. Pt has only been admitted for approximately 4 hours and is already requesting food. I reviewed with her that with HE requiring admission it is best to be NPO for at least 24-48 hours to give bowel some rest. She requested morphine be given to her like in the ER. I reviewed with her that there is no reason for the need for morphine because her gallbladder is normal and no e/o pancreatitis. belly exam is benign - recommended tylenol supp since she reports that she is unable to tolerate po intake. Reviewed with pt plan of care - IV and supp meds and bowel rest. Psych consult on friday with outpt f/u. Psych is not here to contact today so will see if telephone lineman provider can contact on friday. Upon immediately entering room she reported she was voiding down her leg because of vomiting. Reviewed kegels and timed voiding to prevent this and also reviewed with her that it is possible to stop involuntary voiding with kegels and go to the bathroom. She continued to void down her leg and had to be brought materials for clean up and paper pants. Pt agreed with plan of care and again we reviewed NPO is important for her recovery in the early care of HE due to need for bowel rest. - Time Time Spent: 30 to 50 Minutes Medications reviewed and adjusted accordingly: Yes Anticipated discharge: Home Within: within 72 hours - Inpatient Certification Based on my medical assessment, after consideration of the patient's comorbidities, presenting symptoms, or acuity I expect that the services needed warrant INPATIENT care.: Yes I certify that my determination is in accordance with my understanding of Medicare's requirements for reasonable and necessary INPATIENT services [42 CFR 412.3e].: Yes Medical Necessity: Need For IV Fluids Post Hospital Care: D/C Senior Producer Documentation - Plan Summary Plan Summary: NPO, antiemetics, Psych consult
[2016-10-05] MEDS: ACETAMINOPHEN 650 MG SUPP.RECT PR PRN ×2 (18:30→23:24)
[2016-10-05] MEDS ORDERED: PHENOL/SODIUM PHENOLATE 100 SPRAY/177 ML BOTTLE PO PRN (18:48)
[2016-10-05] MEDS ORDERED: PHENOL/SODIUM PHENOLATE 100 SPRAY/177 ML BOTTLE ONE (19:45)
[2016-10-05] MEDS: FAMOTIDINE INJ/PF 20 MG/2 ML SDV IV SCH (21:34)
[2016-10-05 21:52] LABS: URINE BARBITURATES SCREEN NEGATIVE; URINE METHADONE SCREEN NEGATIVE; URINE OPIATES LOW NEGATIVE; URINE PHENCYCLIDINE SCREEN NEGATIVE
[2016-10-05] MEDS ORDERED: ZOLPIDEM TARTRATE 5 MG TABLET PO SCH (22:00)
[2016-10-05] MEDS ORDERED: ONDANSETRON HCL INJ/PF 4 MG/2 ML SDV IV PRN (22:27)
[2016-10-05] MEDS ORDERED: METOCLOPRAMIDE HCL INJ/PF 10 MG/2 ML SDV IV PRN (22:28)
[2016-10-05] MEDS: ONDANSETRON HCL INJ/PF 4 MG/2 ML SDV IV PRN (23:23)
[2016-10-06] MEDS: DEXTROSE 5%-1/2 NORMAL SALINE 1,000 ML IV PRN (00:42)
[2016-10-06] MEDS: ACETAMINOPHEN 650 MG SUPP.RECT PR PRN ×2 (04:42→11:02)
[2016-10-06] MEDS: ONDANSETRON HCL INJ/PF 4 MG/2 ML SDV IV PRN ×2 (06:01→11:32)
[2016-10-06 06:15] LABS: ALANINE AMINOTRANSFERASE 27 U/L (5-35); ALBUMIN 3.8 g/dL (3.7-5.6); ALKALINE PHOSPHATASE 74 U/L (50-135); ANION GAP 14 (5-19); ASPARTATE AMINO TRANSFERASE 31 U/L (5-30); BILIRUBIN,DIRECT 0.3 mg/dL (0.0-0.4); BILIRUBIN,TOTAL 0.9 mg/dL (0.2-1.3); BLOOD UREA NITROGEN 3 mg/dL (7-20); CALCIUM 8.7 mg/dL (8.4-10.2); CARBON DIOXIDE 16 mmol/L (22-30); CHLORIDE 103 mmol/L (98-107); CREATININE RESULT 0.42 mg/dL (0.52-1.25); GLUCOSE 120 mg/dL (75-110); POTASSIUM 3.3 mmol/L (3.6-5.0); SODIUM 132.9 mmol/L (137-145); TOTAL PROTEIN 6.5 g/dL (6.3-8.2)
[2016-10-06] MEDS: FAMOTIDINE 20 MG TABLET PO SCH (06:29)
[2016-10-06] MEDS ORDERED: MAGNESIUM HYDROXIDE SUSP 30 ML UDCUP PO PRN (08:02)
--- NOTE | 2016-10-06 08:07 | PDOC PROGRESS REPORT ---
Subjective Subjective:: Pt reports continued n/v. Still requesting IV narcotics No vaginal bleeding Physical Exam - Physical Exam Vital Signs: Temp Pulse Resp BP Pulse Ox 98.7 F 62 16 130/64 H 100 10/06/16 04:46 10/06/16 05:19 10/05/16 23:34 10/06/16 05:19 10/06/16 04:46 Intake & Output 10/05/16 10/06/16 10/07/16 06:59 06:59 06:59 Intake Total 375 Balance 375 Weight 68.9 kg General appearance: PRESENT: no acute distress, disheveled, well-developed, well -nourished Result Laboratory Results: 10/06/16 05:38 10/06/16 05:38 Sodium 132.9 L Potassium 3.3 L Chloride 103 Carbon Dioxide 16 L Anion Gap 14 BUN 3 L Creatinine 0.42 L Est GFR ( Amer) > 60 Est GFR (Non-Af Amer) > 60 Glucose 120 H Calcium 8.7 Total Bilirubin 0.9 AST 31 H ALT 27 Alkaline Phosphatase 74 Total Protein 6.5 Albumin 3.8 Impressions: Abdomen Ultrasound 10/05/16 09:17 IMPRESSION: NORMAL RIGHT UPPER QUADRANT ULTRASOUND. Obstetrics Ultrasound 10/05/16 09:21 IMPRESSION: LIVING INTRAUTERINE . ESTIMATED GESTATIONAL AGE 10 week 2 day. Trimester of : 1st trimester. Assessment & Plan - Diagnosis (1) Hyperemesis gravidarum with dehydration Is this a current diagnosis for this admission?: Yes (2) Hypokalemia Is this a current diagnosis for this admission?: Yes (3) Marijuana abuse Is this a current diagnosis for this admission?: Yes - Time Time Spent with patient: 15-24 minutes Medications reviewed and adjusted accordingly: Yes Anticipated discharge: Home Within: Other - Will continue with NPO status and IV fluyid rehydration WILL NOT GIVE IV NARCOTICS, including IV phenergan Joy consult in AM
[2016-10-06 08:21] VITALS: BP 130/84
[2016-10-06] MEDS: FAMOTIDINE INJ/PF 20 MG/2 ML SDV IV SCH (09:32)
== END 2016-10-06 12:18 | disposition left against medical advice (07) | DRG 781 ==
LOC: ER 07:04 → EH 12:41 → UNDOADMIN 12:41 → 2S 13:00 → EH 13:20
PROVIDERS: ADMIT Student in an Organized Health Care Education/Training Program; ATTEND Student in an Organized Health Care Education/Training Program
DX: O21.1 Hyperemesis gravidarum with metabolic disturbance (principal); O99.321 Drug use complicating pregnancy, first trimester; F12.10 Cannabis abuse, uncomplicated; O26.891 Other specified pregnancy related conditions, first trimester; J45.909 Unspecified asthma, uncomplicated; K21.9 Gastro-esophageal reflux disease without esophagitis; Z3A.10 10 weeks gestation of pregnancy
CPT/HCPCS: 36415; 76705; 76801; 80053; 80307; 81001; 83690; 85025; 87086; 96374; 96375; 99285; J0780; J1200; J2405; J3411; J3490; J7030; S0028; S0119

== ENCOUNTER 2016-10-07 12:02 | Emergency (ER) | payer OTHER ==
[2016-10-07] MEDS ORDERED: NORMAL SALINE 1000 ML 1,000 ML IV ONE (12:47)
--- NOTE | 2016-10-07 12:53 | ER Document Report ---
ED Medical Screen (RME) - General Chief Complaint: Nausea/Vomiting/Diarrhea Stated Complaint: ABDOMINAL PAIN Time Seen by Provider: 10/07/16 12:05 Information source: Patient Notes: Patient is a 20 year old female who presents to the ED with complaints of hyperemesis during . Patient is currently 7 weeks and has required multiple admissions for the hyperemesis. Patient has continued to have epigastric pain, nausea and vomiting. Patient plans to abort the baby due to the severity of this problem. TRAVEL OUTSIDE OF THE [place] IN LAST 30 DAYS: No - HPI Associated Symptoms: Other - see above - Related Data Allergies/Adverse Reactions: No Known Allergies Allergy (Verified 10/07/16 12:10) Past Medical History - General Information source: Patient - Social History Chew tobacco use (# tins/day): No Frequency of alcohol use: None Drug Abuse: Marijuana - Past Medical History Cardiac Medical History: Denies: Hx Congestive Heart Failure, Hx Heart Attack, Hx Hypertension Pulmonary Medical History: Reports: Hx Asthma Denies: Hx Bronchitis, Hx COPD, Hx Pneumonia, Hx Tuberculosis Neurological Medical History: Denies: Hx Seizures Renal/ Medical History: Denies: Hx End Stage Renal Disease, Hx Kidney Stones, Hx Peritoneal Dialysis GI Medical History: Reports: Hx Gastroesophageal Reflux Disease. Denies: Hx Ulcer Musculoskeltal Medical History: Denies Hx Arthritis Psychiatric Medical History: Denies: Hx Bipolar Disorder, Hx Depression, Hx Schizophrenia Past Surgical History: Reports: Hx Adenoidectomy, Hx Tonsillectomy - Immunizations Hx Diphtheria, Pertussis, Tetanus Vaccination: Yes Review of Systems - Review of Systems Constitutional: No symptoms reported EENT: No symptoms reported Cardiovascular: No symptoms reported Respiratory: No symptoms reported Gastrointestinal: No symptoms reported, Abdominal pain - epigastric, Nausea, Vomiting Genitourinary: No symptoms reported Female Genitourinary: No symptoms reported Musculoskeletal: No symptoms reported Skin: No symptoms reported Hematologic/Lymphatic: No symptoms reported Neurological/Psychological: No symptoms reported Physical Exam - Vital signs Vitals: Temp Pulse Resp BP Pulse Ox 98.6 F 75 24 137/88 H 98 10/07/16 12:10 10/07/16 12:10 10/07/16 12:10 10/07/16 12:10 10/07/16 12:10 - General General appearance: Other - crying, inconsolable - Abdominal Tenderness: Tender - epigastric - Psychological Associated symptoms: Other - crying, inconsolable Course - Vital Signs Vital signs: Temp Pulse Resp BP Pulse Ox 98.6 F 75 24 137/88 H 98 10/07/16 12:10 10/07/16 12:10 10/07/16 12:10 10/07/16 12:10 10/07/16 12:10 Scribe Documentation - Scribe Written by Mauro:: mauro Cat, 10/07/2016, 1253 acting as scribe for :: Larry
[2016-10-07 15:22] LABS: ALANINE AMINOTRANSFERASE 34 U/L (5-35); ALBUMIN 4.4 g/dL (3.7-5.6); ALKALINE PHOSPHATASE 87 U/L (50-135); ANION GAP 18 (5-19); ASPARTATE AMINO TRANSFERASE 29 U/L (5-30); BILIRUBIN,DIRECT 0.5 mg/dL (0.0-0.4); BLOOD UREA NITROGEN 8 mg/dL (7-20); CARBON DIOXIDE 18 mmol/L (22-30); CHLORIDE 102 mmol/L (98-107); CREATININE RESULT 0.44 mg/dL (0.52-1.25); GLUCOSE 99 mg/dL (75-110); LIPASE 86.8 U/L (23-300); POTASSIUM 3.2 mmol/L (3.6-5.0); TOTAL PROTEIN 7.3 g/dL (6.3-8.2)
[2016-10-07] MEDS ORDERED: ONDANSETRON HCL INJ/PF 4 MG/2 ML SDV IV ONE (15:24)
[2016-10-07] MEDS ORDERED: NORMAL SALINE 1000 ML 1,000 ML IV PRN (15:24)
[2016-10-07] MEDS ORDERED: FAMOTIDINE INJ/PF 20 MG/2 ML SDV IV ONE (15:24)
--- NOTE | 2016-10-07 16:02 | ER Document Report ---
ED GI/ - General Chief Complaint: Nausea/Vomiting/Diarrhea Stated Complaint: ABDOMINAL PAIN Time Seen by Provider: 10/07/16 12:05 Mode of Arrival: Ambulatory Information source: Patient TRAVEL OUTSIDE OF THE [place] IN LAST 30 DAYS: No - HPI Patient complains to provider of: Abdominal pain, , Vomiting Onset: This morning Timing/Duration: Sudden Quality of pain: Achy, Burning Severity at maximum: Moderate Severity in ED: Moderate Pain Level: 3 Location: Epigastric Vaginal bleeding (Compared to normal period): None Menstrual period history: Associated symptoms: Nausea, Vomiting Exacerbated by: Denies Relieved by: Denies Similar symptoms previously: Yes Recently seen / treated by doctor: Yes Notes: 10/07/16 18:35 20-year-old female who presents to the emergency room for the fourth time in 3 days complaining of epigastric abdominal pain with nausea and vomiting relating to , patient is well known to this emergency room for previous hyperemesis gravidarum during a previous , she reports being approximately 7 weeks at this point in time constant nausea and vomiting, with a burning sensation in her upper abdomen, she is requesting pain medication, in fact requested morphine by name, stating it will help her relax, and also requested Ambien to help her sleep, patient also reports that she is planning on terminating this - Related Data Allergies/Adverse Reactions: No Known Allergies Allergy (Verified 10/07/16 12:10) Past Medical History - General Information source: Patient - Social History Smoking Status: Never Smoker Chew tobacco use (# tins/day): No Frequency of alcohol use: None Drug Abuse: Marijuana Family History: Reviewed & Not Pertinent Patient has suicidal ideation: No Patient has homicidal ideation: No - Past Medical History Cardiac Medical History: Denies: Hx Congestive Heart Failure, Hx Heart Attack, Hx Hypertension Pulmonary Medical History: Reports: Hx Asthma Denies: Hx Bronchitis, Hx COPD, Hx Pneumonia, Hx Tuberculosis Neurological Medical History: Denies: Hx Seizures Renal/ Medical History: Denies: Hx End Stage Renal Disease, Hx Kidney Stones, Hx Peritoneal Dialysis GI Medical History: Reports: Hx Gastroesophageal Reflux Disease. Denies: Hx Ulcer Musculoskeltal Medical History: Denies Hx Arthritis Psychiatric Medical History: Denies: Hx Bipolar Disorder, Hx Depression, Hx Schizophrenia Past Surgical History: Reports: Hx Adenoidectomy, Hx Tonsillectomy - Immunizations Hx Diphtheria, Pertussis, Tetanus Vaccination: Yes Review of Systems - Review of Systems Constitutional: No symptoms reported EENT: No symptoms reported Cardiovascular: No symptoms reported Respiratory: No symptoms reported Gastrointestinal: See HPI Genitourinary: No symptoms reported Female Genitourinary: See HPI Musculoskeletal: No symptoms reported Skin: No symptoms reported Hematologic/Lymphatic: No symptoms reported Neurological/Psychological: No symptoms reported -: Yes All other systems reviewed and negative Physical Exam - Vital signs Vitals: Temp Pulse Resp BP Pulse Ox 98.6 F 75 24 137/88 H 98 10/07/16 12:10 10/07/16 12:10 10/07/16 12:10 10/07/16 12:10 10/07/16 12:10 Interpretation: Normal - General General appearance: Alert - HEENT Head: Normocephalic, Atraumatic Eyes: Normal Conjunctiva: Normal Extraocular movements intact: Yes Eyelashes: Normal Pupils: PERRL Mucous membranes: Moist - Respiratory Respiratory status: No respiratory distress Chest status: Nontender Breath sounds: Normal Chest palpation: Normal - Cardiovascular Rhythm: Regular Heart sounds: Normal auscultation Murmur: No - Abdominal Inspection: Normal Distension: No distension Bowel sounds: Normal Tenderness: Tender - epigastric Organomegaly: No organomegaly - Back Back: Normal, Nontender - Extremities General upper extremity: Normal inspection, Nontender, Normal color, Normal ROM , Normal temperature General lower extremity: Normal inspection, Nontender, Normal color, Normal ROM , Normal temperature, Normal weight bearing. No: Neeraj's sign - Neurological Neuro grossly intact: Yes Cognition: Normal Orientation: AAOx4 [place] Coma Scale Eye Opening: Spontaneous [place] Coma Scale Verbal: Oriented [place] Coma Scale Motor: Obeys Commands Hernandez Coma Scale Total: 15 Speech: Normal Motor strength normal: LUE, RUE, LLE, RLE Sensory: Normal - Psychological Associated symptoms: Tearful - Skin Skin Temperature: Warm Skin Moisture: Dry Skin Color: Normal Course - Re-evaluation Re-evalutation: 10/07/16 17:12 patient has been ambulating in the emergency room, I have not observed her to actually vomit since being here, she was retching at one point in time but this appeared to be more force than actual vomiting, lab findings were discussed with patient at bedside which are consistent with mild dehydration, she was provided with 2 L of IV fluids, she was asking for ice chips and juice, however she was discharged at this point in time with instructions for follow-up, as well as prescriptions for nausea medication, patient acknowledges understanding and agreement with this plan - Vital Signs Vital signs: Temp Pulse Resp BP Pulse Ox 98.6 F 75 24 137/88 H 98 10/07/16 12:10 10/07/16 12:10 10/07/16 12:10 10/07/16 12:10 10/07/16 12:10 - Laboratory Result Diagrams: 10/07/16 15:52 10/07/16 14:31 Laboratory results interpreted by me: 10/07/16 10/07/16 10/07/16 14:31 15:30 15:52 WBC 12.9 H Seg Neutrophils % 85.6 H Lymphocytes % 7.0 L Absolute Neutrophils 11.0 H Potassium 3.2 L Carbon Dioxide 18 L Creatinine 0.44 L Direct Bilirubin 0.5 H Beta HCG, Quant 80882.00 H Discharge - Discharge Clinical Impression: Hyperemesis gravidarum with dehydration Condition: Stable Disposition: HOME, SELF-CARE Instructions: Antinausea Medication ([facility]), Intravenous (IV) Fluids ([facility]), Vomiting ([facility]) Additional Instructions: Follow up with your primary care provider in one to 2 days. Return to the emergency room immediately if symptoms worsen or any additional concerns. Prescriptions: Ondansetron [Zofran Odt 4 mg Tablet] 1 - 2 tab PO Q4H #20 tab.rapdis Promethazine HCl [Phenergan 25 mg Tablet] 25 - 50 mg PO ASDIR PRN #12 tablet PRN Reason: Referrals: DEUCE CLEMENS MD [Primary Care Provider] - Follow up as needed
[2016-10-07 16:11] LABS: ABSOLUTE LYMPHOCYTES (AUTO) 0.9 10^3/uL (0.5-4.7); ABSOLUTE MONOCYTES (AUTO) 0.9 10^3/uL (0.1-1.4); BASOPHILS % (AUTO) 0.1 % (0-2); HEMATOCRIT 38.4 % (36.0-47.0); HEMOGLOBIN 12.7 g/dL (12.0-15.5); HGB HCT DIFFERENCE -0.3; MEAN CORPUSCULAR HGB CONC 33.1 g/dL (32.0-36.0); MEAN CORPUSCULAR VOLUME 85 fl (80-97); MONOCYTES % (AUTO) 7.3 % (3-13); RED BLOOD COUNT 4.53 10^6/uL (3.72-5.28); RED CELL DISTRIBUTION WIDTH 13.3 % (11.5-14.0); SEGMENTED NEUTROPHILS % (AUTO) 85.6 % (42-78); WHITE BLOOD COUNT 12.9 10^3/uL (4.0-10.5)
[2016-10-07 19:16] VITALS: BP 122/75
== END 2016-10-07 17:20 | disposition home or self-care (01) ==
LOC: ER 12:02
DX: O21.1 Hyperemesis gravidarum with metabolic disturbance (principal); R19.7 Diarrhea, unspecified; R10.9 Unspecified abdominal pain; Z3A.01 Less than 8 weeks gestation of pregnancy
CPT/HCPCS: 99284; 96361; 96374; 96375; 36415; 84702; 83690; 85025; 80053; J2405; J7030; S0028

== ENCOUNTER 2017-02-18 09:53 | Observation (INO) | payer OTHER ==
[2017-02-18] MEDS ORDERED: PROMETHAZINE HCL INJ 25 MG/1 ML VIAL IM ONE (10:09)
[2017-02-18 10:52] LABS: ABSOLUTE LYMPHOCYTES (AUTO) 0.9 10^3/uL (0.5-4.7); ABSOLUTE MONOCYTES (AUTO) 0.8 10^3/uL (0.1-1.4); ABSOLUTE NEUT (AUTO) 14.1 10^3/uL (1.7-8.2); BASOPHILS % (AUTO) 0.2 % (0-2); EOSINOPHILS % (AUTO) 0.1 % (0-6); HEMATOCRIT 42.2 % (36.0-47.0); HEMOGLOBIN 14.4 g/dL (12.0-15.5); LYMPHOCYTES % (AUTO) 5.5 % (13-45); MEAN CORPUSCULAR HEMOGLOBIN 29.1 pg (27.0-33.4); MEAN CORPUSCULAR HGB CONC 34.1 g/dL (32.0-36.0); MEAN CORPUSCULAR VOLUME 85 fl (80-97); MONOCYTES % (AUTO) 5.1 % (3-13); RED BLOOD COUNT 4.95 10^6/uL (3.72-5.28); RED CELL DISTRIBUTION WIDTH 13.9 % (11.5-14.0); SEGMENTED NEUTROPHILS % (AUTO) 89.1 % (42-78); WHITE BLOOD COUNT 15.8 10^3/uL (4.0-10.5)
[2017-02-18] MEDS ORDERED: MAG HYDROX/AL HYDROX/SIMETH SUSP 30 ML UDCUP PO ONE ×2 (10:54→14:11)
[2017-02-18 11:19] LABS: ALANINE AMINOTRANSFERASE 56 U/L (9-52); ALBUMIN 5.2 g/dL (3.5-5.0); ALKALINE PHOSPHATASE 123 U/L (38-126); ASPARTATE AMINO TRANSFERASE 40 U/L (14-36); BILIRUBIN,DIRECT 0.4 mg/dL (0.0-0.4); BLOOD UREA NITROGEN 14 mg/dL (7-20); CALCIUM 10.1 mg/dL (8.4-10.2); CARBON DIOXIDE 17 mmol/L (22-30); CHLORIDE 101 mmol/L (98-107); CREATININE RESULT 0.54 mg/dL (0.52-1.25); GLUCOSE 141 mg/dL (75-110); LIPASE 30.9 U/L (23-300); POTASSIUM 3.5 mmol/L (3.6-5.0); SODIUM 140.1 mmol/L (137-145); TOTAL PROTEIN 7.9 g/dL (6.3-8.2)
[2017-02-18 12:04] LABS: ANION GAP 22 (5-19)
--- NOTE | 2017-02-18 13:40 | RADIOLOGY REPORT (SQ) ---
EXAM DESCRIPTION: U/S OB TRANSVAGINAL W/O DOP COMPLETED DATE/TIME: 02/18/2017 1:27 pm REASON FOR STUDY: abd pain, COMPARISON: No previous this Prior OB ultrasound 10/05/2016 TECHNIQUE: Endovaginal static and realtime grayscale images acquired of the pelvis. Additional selec willa spectral and color Doppler images recorded. All images stored on PACs. bHC,108 LIMITATIONS: Patient refused exam after visualization of the uterus FINDINGS: An intrauterine gestational sac is present containing an embryo and yolk sac. Embryo [place] n-rump length generates an estimated age of 7 weeks 0 days. If real-time scanning, embryo cardiac ac tivity was identified. SUBCHORIONIC BLEED: No SIZE OF BLEED: Not applicable. UTERUS: No masses. No anomalies. 7 x 5 x 4 cm in size CERVICAL LENGTH: 4 cm Closed. BILATERAL ADNEXA: NOT EVALUATED. PATIENT REFUSED FURTHER EXAM FREE FLUID: None. OTHER: No other significant finding. IMPRESSION: LIVING INTRAUTERINE . EGA 7 weeks 0 days Adnexa not evaluated Trimester of : First - 0 to 13 weeks. TECHNICAL DOCUMENTATION: JOB ID: [id number] [employer]- All Rights Reserved
--- NOTE | 2017-02-18 13:50 | ER Document Report ---
ED General - General Chief Complaint: Abdominal Pain Stated Complaint: ABDOMINAL PAIN Time Seen by Provider: 02/18/17 10:02 Mode of Arrival: Ambulatory Information source: Patient Notes: Patient is a 21-year-old female who presents to the ER today approximately 8 weeks for abdominal pain, nausea and vomiting. Patient states that it is worse today. She does have Zofran at home and took it but did not have any relief. She also takes Haldol for vomiting but also had no relief. She denies any vaginal bleeding, abnormal vaginal discharge, dysuria, fevers or chills. She admits that the abdominal pain is "all over" her abdomen. TRAVEL OUTSIDE OF THE [place] IN LAST 30 DAYS: No - Related Data Allergies/Adverse Reactions: No Known Allergies Allergy (Verified 02/18/17 10:56) Past Medical History - General Information source: Patient - Social History Smoking Status: Unknown if Ever Smoked Chew tobacco use (# tins/day): No Frequency of alcohol use: None Drug Abuse: None Family History: Reviewed & Not Pertinent Patient has suicidal ideation: No Patient has homicidal ideation: No - Past Medical History Cardiac Medical History: Denies: Hx Congestive Heart Failure, Hx Heart Attack, Hx Hypertension Pulmonary Medical History: Reports: Hx Asthma Denies: Hx Bronchitis, Hx COPD, Hx Pneumonia, Hx Tuberculosis Neurological Medical History: Denies: Hx Seizures Renal/ Medical History: Denies: Hx End Stage Renal Disease, Hx Kidney Stones, Hx Peritoneal Dialysis GI Medical History: Reports: Hx Gastroesophageal Reflux Disease. Denies: Hx Ulcer Musculoskeltal Medical History: Denies Hx Arthritis Psychiatric Medical History: Denies: Hx Bipolar Disorder, Hx Depression, Hx Schizophrenia Past Surgical History: Reports: Hx Adenoidectomy, Hx Tonsillectomy - Immunizations Hx Diphtheria, Pertussis, Tetanus Vaccination: Yes Review of Systems - Review of Systems Constitutional: No symptoms reported EENT: No symptoms reported Cardiovascular: No symptoms reported Respiratory: No symptoms reported Gastrointestinal: No symptoms reported Genitourinary: No symptoms reported Female Genitourinary: No symptoms reported Musculoskeletal: No symptoms reported Skin: No symptoms reported Hematologic/Lymphatic: No symptoms reported Neurological/Psychological: No symptoms reported Physical Exam - Vital signs Vitals: Temp Pulse Resp BP Pulse Ox 98.7 F 79 18 143/88 H 99 02/18/17 10:20 02/18/17 10:20 02/18/17 10:20 02/18/17 10:20 02/18/17 10:20 - Notes Notes: PHYSICAL EXAMINATION: GENERAL: actively vomiting, crying, in mild acute distress. HEAD: Atraumatic, normocephalic. EYES: Pupils equal round and reactive to light, extraocular movements intact, sclera anicteric, conjunctiva are normal. ENT: vomit on teeth, airway patent NECK: Normal range of motion, supple without lymphadenopathy LUNGS: CTAB and equal. No wheezes rales or rhonchi. HEART: Regular rate and rhythm without murmurs ABDOMEN: Soft, diffuse tenderness to extremely light touch. No guarding, no rebound BACK: no vertebral tenderness, normal ROM GI/: no CVA tenderness EXTREMITIES: Normal range of motion, no pitting edema. No cyanosis. NEUROLOGICAL: Cranial nerves grossly intact. Normal sensory/motor exams. PSYCH: dramatic SKIN: Warm, Dry, normal turgor, no rashes or lesions noted Course - Re-evaluation Re-evalutation: 02/18/17 15:02 Patient has a white blood cell count of 15.8, she refuses to give us a urinalysis here. Transvaginal ultrasound reports a normal intrauterine living without abnormality. pole could not be measured because patient would not stop moving during ultrasound. Patient is quite dramatic, however she has vomited here multiple times given multiple different antinausea medications. Patient admitted to floor by PHARMACY RETAIL SUPPORT SPECIALIST at this time For hyperemesis gravidarum. - Vital Signs Vital signs: Temp Pulse Resp BP Pulse Ox 98.7 F 79 18 143/88 H 99 02/18/17 10:20 02/18/17 10:20 02/18/17 10:20 02/18/17 10:20 02/18/17 10:20 - Laboratory Result Diagrams: 02/18/17 10:40 02/18/17 10:25 Laboratory results interpreted by me: 02/18/17 02/18/17 10:25 10:40 WBC 15.8 H Seg Neutrophils % 89.1 H Lymphocytes % 5.5 L Absolute Neutrophils 14.1 H Potassium 3.5 L Carbon Dioxide 17 L Anion Gap 22 H Glucose 141 H AST 40 H ALT 56 H Albumin 5.2 H Beta HCG, Quant 13733.00 H Discharge - Discharge Clinical Impression: Abdominal pain affecting Nausea & vomiting Qualifiers: Vomiting type: unspecified Vomiting Intractability: non-intractable Qualified Code(s): R11.2 - Nausea with vomiting, unspecified Condition: Stable Disposition: ADMITTED INPATIENT Admitting Provider: [facility] - Dr. Lemons Unit Admitted: Post
[2017-02-18] MEDS ORDERED: NORMAL SALINE 1000 ML 1,000 ML IV ONE (14:11)
[2017-02-18 16:09] VITALS: BP 129/81
--- NOTE | 2017-02-18 17:08 | HX & PHYSICAL/DISCHG SUMMARY E ---
History and Physical/Discharge Summary NAME: TIFFANY IBRAHIM : 1995 AGE: 21Y ADMITTED: 02/18/2017 DISCHARGED: 02/18/2017 CHIEF COMPLAINT: Abdominal pain. HISTORY OF PRESENT ILLNESS: Patient is a 21-year-old female, 3, para 1, who is about 8 weeks , presenting with nausea, vomiting. She has presented in previous pregnancies and this has been extremely disruptive. In the past, she has not had witnessed emesis, but just continues to spit in the room. Today, she states she came in to see a social media project manager so that she can get her Medicaid quicker. Initially, she would not speak with me; however, we discussed sending her home and she became very animated. ALLERGIES: No known drug allergies. PAST MEDICAL HISTORY: Significant for previous marijuana use. She denies any homicidal or suicidal ideation. She denies any cardiac problems. She reports that she does have a history of seizures. PSYCHIATRIC HISTORY: Reveals a history of bipolar disorder, depression. SURGICAL HISTORY: Adenoids and tonsils. REVIEW OF SYSTEMS: Reveals no heart or lung problems. She is newly and had difficulties with nausea throughout the previous . Previous admissions have not helped. Previous psych consults have not seemed to help either. PHYSICAL EXAMINATION: VITAL SIGNS: Afebrile. Vital signs are stable. GENERAL: She is alert, oriented in bed. She appeared very comfortable until we discussed discharge, and then she became very animated. HEENT: Unremarkable. NECK: Supple. HEART: Regular rate and rhythm. LUNGS: Clear. ABDOMEN: Soft. No guarding or rebound. EXTREMITIES: No clubbing, cyanosis or edema. NEUROLOGICAL: Intact. ASSESSMENT: Nausea during . We have not witnessed any vomiting. I will send her home on anti-emetics at this time. Her desire to have a Social Work consult can be accomplished as an outpatient, as well as care. DISCHARGE MEDICATIONS INCLUDE: 1. vitamins. 2. Reglan. CONDITION ON DISCHARGE: Good. She will be sent home today. DICTATING PHYSICIAN: MARGA RÍOS M.D. [id number] PHY#: [id number] ID: [id number] JOB#: [id number] ACCT: [id number] cc:MARGA RÍOS M.D. >
== END 2017-02-18 18:38 | disposition home or self-care (01) ==
LOC: ER 09:53 → EH 14:25 → INTOOBSV 14:25 → 2N 15:24
PROVIDERS: ADMIT Obstetrics & Gynecology; ATTEND Obstetrics & Gynecology
DX: O26.891 Other specified pregnancy related conditions, first trimester (principal); R11.0 Nausea; Z3A.08 8 weeks gestation of pregnancy; Z87.19 Personal history of other diseases of the digestive system
CPT/HCPCS: 99285; 96372; 36415; 84702; 83690; 85025; 80053; 76817; G0378 ×2; J2550; J7030

== ENCOUNTER 2017-03-09 14:23 | Emergency (ER) | payer MEDICAID, OTHER ==
[2017-03-09] MEDS ORDERED: NORMAL SALINE 1000 ML 1,000 ML IV PRN (14:41)
--- NOTE | 2017-03-09 14:42 | ER Document Report ---
ED GI/ - General Chief Complaint: Vomiting Stated Complaint: BACK PAIN Time Seen by Provider: 03/09/17 14:30 Notes: Patient is a 9-week female who presents to the ED complaining of vomiting with a history of hyperemesis gravidarum. 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 She denies any hematemesis or cofee ground emesis at this time. Admits to low back pain but otherwise denies any abdominal pain at this time. OBGYN with [facility], was discharged for similar symptoms approx. 2 weeks ago TRAVEL OUTSIDE OF THE [place] IN LAST 30 DAYS: No - Related Data Allergies/Adverse Reactions: No Known Allergies Allergy (Verified 02/18/17 10:56) Past Medical History - Social History Smoking Status: Current Every Day Smoker Drug Abuse: Marijuana Family History: Reviewed & Not Pertinent - Past Medical History Cardiac Medical History: Reports: Hx Hypertension Denies: Hx Congestive Heart Failure, Hx Heart Attack Pulmonary Medical History: Reports: Hx Asthma Denies: Hx Bronchitis, Hx COPD, Hx Pneumonia, Hx Tuberculosis Neurological Medical History: Denies: Hx Seizures Renal/ Medical History: Denies: Hx End Stage Renal Disease, Hx Kidney Stones, Hx Peritoneal Dialysis GI Medical History: Reports: Hx Gastroesophageal Reflux Disease. Denies: Hx Ulcer Musculoskeltal Medical History: Denies Hx Arthritis Psychiatric Medical History: Denies: Hx Bipolar Disorder, Hx Depression, Hx Schizophrenia Past Surgical History: Reports: Hx Adenoidectomy, Hx Tonsillectomy - Immunizations Hx Diphtheria, Pertussis, Tetanus Vaccination: Yes Review of Systems - Review of Systems Constitutional: No symptoms reported Cardiovascular: No symptoms reported Respiratory: No symptoms reported Gastrointestinal: See HPI Musculoskeletal: See HPI -: Yes All other systems reviewed and negative Physical Exam - Vital signs Vitals: Temp Pulse Resp BP Pulse Ox 98.3 F 118 H 20 135/90 H 99 03/09/17 14:26 03/09/17 14:26 03/09/17 14:26 03/09/17 14:26 03/09/17 14:26 - Notes Notes: PHYSICAL EXAM GENERAL: Alert, interacts well. HEAD: Normocephalic, atraumatic. EYES: Pupils equal, round, and reactive to light. Extraocular movements intact. ENT: Oral mucosa moist, tongue midline. NECK: Full range of motion. Supple. Trachea midline. LUNGS: Clear to auscultation bilaterally, no wheezes, rales, or rhonchi. No respiratory distress. HEART: Regular rate and rhythm. No murmurs, gallops, or rubs. ABDOMEN: Soft, nondistended, nontender. No guarding, rebound, or rigidity.. Bowel sounds present in all 4 quadrants. EXTREMITIES: Moves all 4 extremities spontaneously. No edema, radial and dorsalis pedis pulses 2/4 bilaterally. No cyanosis. NEUROLOGICAL: Alert and oriented x4. Normal speech. PSYCH: Normal affect, normal mood. SKIN: Warm, dry, normal turgor. No rashes or lesions noted. Course - Re-evaluation Re-evalutation: 03/09/17 16:49 Patient is a 21-year-old female who is hemodynamically stable in mild distress due to anxiety and discomfort and afebrile. Presentation is consistent with patient's previous presentations of hyperemesis gravidarum. Patient initially medicated with Phenergan and was able to sleep and rest comfortably. She was only started vomiting again when the nurse went to go adjust her review to make sure fluids are flowing when she started getting agitated and throwing up again. There was evidence of 2 emesis bags with emesis. The first with evidence of clear gastric secretions in the second with of brown/bloody emesis. Sent for Gastroccult which did test positive. Otherwise CBC is stable without any evidence of anemia. Mild elevation of white blood cell count likely consistent with patient's recurrent emesis. Chemistries are stable. Evidence of 80+ ketones patient's urine concerning for dehydration. Discussed case with mental health provider Dr. Dos Santos who recommends giving patient a IM injection of Haldol decanoate given that patient has been noncompliant with her previous doses of Haldol. 03/09/17 18:16 Patient was accepted to [facility] under Dr. Sanford Simmons with the [employer] service who has accepted the patient for transport. Patient was initiated on Protonix drip as well as initial bolus but was told by accepting physician to discontinue the drip. Patient at this time is resting comfortably and sleeping. 03/09/17 19:12 Transport is underway for the patient. She is still resting comfortably without any recent episodes of emesis since gastric occult was sent. 03/09/17 19:51 Transport is at the bedside at this time for transport. Patient still tearful but calm and cooperative with nursing staff taking vitals. Patient has been premedicated prior to transport. Patient is stable for transport. - Vital Signs Vital signs: Temp Pulse Resp BP Pulse Ox 98.6 F 118 H 23 H 125/79 97 03/09/17 18:43 03/09/17 14:26 03/09/17 19:01 03/09/17 19:00 03/09/17 19:01 - Laboratory Result Diagrams: 03/09/17 15:21 03/09/17 15:21 Laboratory results interpreted by me: 03/09/17 03/09/17 03/09/17 14:30 15:21 15:21 WBC 14.9 H RDW 14.2 H Seg Neutrophils % 90.8 H Lymphocytes % 6.5 L Monocytes % 2.5 L Absolute Neutrophils 13.5 H BUN 6 L Creatinine 0.47 L Beta HCG, Quant 949366.00 H Urine Protein 30 H Urine Ketones 80 H Ur Leukocyte Esterase SMALL H Discharge - Discharge Clinical Impression: Hyperemesis gravidarum with dehydration GI bleed Qualifiers: GI bleed type/associated pathology: unspecified gastrointestinal hemorrhage type Qualified Code(s): K92.2 - Gastrointestinal hemorrhage, unspecified Condition: Stable Disposition: [facility] Referrals: SHIRLENE WARD MD [Primary Care Provider] - Follow up as needed
[2017-03-09] MEDS ORDERED: PROMETHAZINE HCL INJ 25 MG/1 ML VIAL IV ONE ×2 (14:44→19:37)
[2017-03-09] MEDS ORDERED: PROMETHAZINE HCL INJ 25 MG/1 ML VIAL IM ONE (15:27)
[2017-03-09] MEDS ORDERED: HALOPERIDOL DECANOATE INJ 100 MG/1 ML VIAL IM ONE (15:28)
[2017-03-09 15:37] LABS: APPEARANCE,URINE CLOUDY; BILIRUBIN,URINE NEGATIVE (NEGATIVE); GLUCOSE, URINE NEGATIVE (NEGATIVE); KETONES,URINE 80 mg/dL (NEGATIVE); LEUKOCYTE ESTERASE,URINE SMALL (NEGATIVE); NITRITE,URINE NEGATIVE (NEGATIVE); PROTEIN,URINE 30 mg/dL (NEGATIVE); URINE SPECIFIC GRAVITY 1.018; UROBILINOGEN,URINE NEGATIVE mg/dL (<2.0)
[2017-03-09 15:39] LABS: ABSOLUTE MONOCYTES (AUTO) 0.4 10^3/uL (0.1-1.4); ABSOLUTE NEUT (AUTO) 13.5 10^3/uL (1.7-8.2); BASOPHILS % (AUTO) 0.1 % (0-2); EOSINOPHILS % (AUTO) 0.1 % (0-6); HEMOGLOBIN 13.6 g/dL (12.0-15.5); HGB HCT DIFFERENCE 0.8; LYMPHOCYTES % (AUTO) 6.5 % (13-45); MEAN CORPUSCULAR HEMOGLOBIN 29.3 pg (27.0-33.4); MEAN CORPUSCULAR VOLUME 86 fl (80-97); MONOCYTES % (AUTO) 2.5 % (3-13); RED BLOOD COUNT 4.65 10^6/uL (3.72-5.28); RED CELL DISTRIBUTION WIDTH 14.2 % (11.5-14.0); SEGMENTED NEUTROPHILS % (AUTO) 90.8 % (42-78); WHITE BLOOD COUNT 14.9 10^3/uL (4.0-10.5)
[2017-03-09 15:47] LABS: URINE BARBITURATES SCREEN NEGATIVE; URINE METHADONE SCREEN NEGATIVE; URINE OPIATES LOW NEGATIVE; URINE PHENCYCLIDINE SCREEN NEGATIVE
[2017-03-09 15:58] LABS: ALANINE AMINOTRANSFERASE 27 U/L (9-52); ALBUMIN 4.5 g/dL (3.5-5.0); ALKALINE PHOSPHATASE 84 U/L (38-126); ANION GAP 13 (5-19); ASPARTATE AMINO TRANSFERASE 24 U/L (14-36); BILIRUBIN,DIRECT 0.2 mg/dL (0.0-0.4); BILIRUBIN,TOTAL 0.6 mg/dL (0.2-1.3); BLOOD UREA NITROGEN 6 mg/dL (7-20); CALCIUM 9.1 mg/dL (8.4-10.2); CARBON DIOXIDE 24 mmol/L (22-30); CHLORIDE 104 mmol/L (98-107); CREATININE RESULT 0.47 mg/dL (0.52-1.25); GLUCOSE 102 mg/dL (75-110); MAGNESIUM 1.9 mg/dL (1.6-2.3); POTASSIUM 3.6 mmol/L (3.6-5.0); TOTAL PROTEIN 7.2 g/dL (6.3-8.2)
[2017-03-09] MEDS ORDERED: ONDANSETRON HCL INJ/PF 4 MG/2 ML SDV IV ONE (16:48)
[2017-03-09] MEDS ORDERED: ACETAMINOPHEN 650 MG SUPP.RECT PR ONE (17:41)
[2017-03-09] MEDS ORDERED: PANTOPRAZOLE SODIUM 40 MG VIAL IV ONE (17:42)
[2017-03-09] MEDS ORDERED: PANTOPRAZOLE SODIUM 40 MG VIAL IV PRN (17:42)
[2017-03-09 19:39] VITALS: BP 125/79
== END 2017-03-09 20:01 | disposition short-term general hospital (02) ==
LOC: ER 14:23
DX: O21.0 Mild hyperemesis gravidarum (principal); E86.0 Dehydration; K92.2 Gastrointestinal hemorrhage, unspecified; M54.9 Dorsalgia, unspecified; Z3A.09 9 weeks gestation of pregnancy; F17.200 Nicotine dependence, unspecified, uncomplicated
CPT/HCPCS: 99285; 96372; 96361; 96374; 96375; 36415; 84702; 83690; 83735; 85025; 82271; 80053; 81001; 80307; J1631; S0164; J2550; J2405; J7030

== ENCOUNTER 2017-06-27 06:41 | Outpatient (CLI) | payer OTHER, MEDICAID | END 2017-06-27 07:20 | disposition home or self-care (01) | LOC: LC 06:41 | PROVIDERS: ATTEND Obstetrics & Gynecology | PROC: 4A1HXCZ Monitoring of Products of Conception, Cardiac Rate, External Approach (ICD-10-PCS; principal; 2017-06-27) | DX: O26.892 Other specified pregnancy related conditions, second trimester (principal); R10.9 Unspecified abdominal pain; R11.2 Nausea with vomiting, unspecified; Z3A.25 25 weeks gestation of pregnancy ==

== ENCOUNTER 2017-06-27 07:26 | Emergency (ER) | payer MEDICAID, OTHER ==
[2017-06-27] MEDS ORDERED: DEXTROSE 5%-NORMAL SALINE 1,000 ML IV ONE (08:12)
[2017-06-27] MEDS ORDERED: ONDANSETRON HCL INJ/PF 4 MG/2 ML SDV IV ONE (08:13)
--- NOTE | 2017-06-27 08:17 | ER Document Report ---
ED General - General Chief Complaint: Vomiting Stated Complaint: VOMITING Time Seen by Provider: 06/27/17 08:07 Notes: 21-year-old female presents to the ER complaining of nausea vomiting. The patient is approximately 16 weeks and states she has had hyperemesis gravidarum throughout her entire has had them with her other pregnancies. The patient also smokes pot on a fairly regular basis. Patient denies any abdominal pain or cramping or bleeding she was sent to labor and delivery first and then sent back to the ER. Patient's stated she vomited several times in the last several days. She complains of severe nausea. She rates it as severe denies any diarrhea constipation. Denies any falls or trauma denies vaginal bleeding or discharge denies hematuria or dysuria. TRAVEL OUTSIDE OF THE [place] IN LAST 30 DAYS: No - Related Data Allergies/Adverse Reactions: No Known Allergies Allergy (Verified 06/27/17 07:32) Past Medical History - Social History Smoking Status: Current Some Day Smoker Family History: Reviewed & Not Pertinent - Past Medical History Cardiac Medical History: Reports: Hx Hypertension Denies: Hx Congestive Heart Failure, Hx Heart Attack Pulmonary Medical History: Reports: Hx Asthma Denies: Hx Bronchitis, Hx COPD, Hx Pneumonia, Hx Tuberculosis Neurological Medical History: Denies: Hx Seizures Renal/ Medical History: Denies: Hx End Stage Renal Disease, Hx Kidney Stones, Hx Peritoneal Dialysis GI Medical History: Reports: Hx Gastroesophageal Reflux Disease. Denies: Hx Ulcer Musculoskeltal Medical History: Denies Hx Arthritis Psychiatric Medical History: Denies: Hx Bipolar Disorder, Hx Depression, Hx Schizophrenia Past Surgical History: Reports: Hx Adenoidectomy, Hx Tonsillectomy - Immunizations Hx Diphtheria, Pertussis, Tetanus Vaccination: Yes Review of Systems - Review of Systems Gastrointestinal: Nausea, Vomiting. denies: Abdominal pain, Diarrhea, Constipation Genitourinary: denies: Dysuria, Hematuria Female Genitourinary: . denies: Post menopausal, Heavy/abnormal periods , Irregular period, Vaginal discharge -: Yes All other systems reviewed and negative Physical Exam - Vital signs Vitals: Temp Pulse Resp BP Pulse Ox 97.7 F 107 H 18 123/88 H 97 06/27/17 07:36 06/27/17 07:36 06/27/17 07:36 06/27/17 07:36 06/27/17 07:36 - Notes Notes: GENERAL_APPEARANCE: well_nourished, alert, cooperative, anxious, crying tearful histrionic VITALS: reviewed, see vital signs table. HEAD: no_swelling\tenderness on the head. EYES: conjunctiva_clear. NOSE: no_nasal_discharge. MOUTH: (-)decreased moisture. THROAT: no_tonsilar_inflammation, no_airway_obstruction. no_lymphadenopathy NECK: supple, no_neck_tenderness, (-)thyromegaly. BACK: no_back_tenderness. CHEST_WALL: no_chest_tenderness. LUNGS: no_wheezing, no_rales, no_rhonchi, (-)accessory muscle use, good air exchange bilateral. HEART: normal_rate, normal_rhythm, normal_S1, normal_S2, (-)S3, (-)S4, no_ murmur, no_rub. ABDOMEN: normal_BS, soft, mild epigastric_abd_tenderness, (-)guarding, (-) rebound, no_organomegaly, no_abd_masses. EXTREMITIES: no_swelling\tenderness in the extremities, no_edema. SKIN: warm, dry, good_color, no_rash. MENTAL_STATUS: speech_clear, oriented_X_3, tearful histrionic_affect, responds_ appropriately to questions. Course - Re-evaluation Re-evalutation: 06/27/17 08:17 21-year-old female comes in with hyperemesis gravidarum. There may be a component of cannabis-induced cyclic vomiting syndrome also will do a drug screen. Patient does state she smokes fairly often. Patient given IV fluids and Zofran. Will check some generalized labs. Patient is a frequent visitor to the emergency department. 06/27/17 11:53 She was given IV fluids Zofran and Phenergan. The patient's drug screen was positive for marijuana. I sent spoke with her about cannabis-induced cyclic vomiting syndrome. I explained that especially in she should avoid any kind of marijuana for it may induce cyclic vomiting syndrome. It is difficult to tell if this is due to her hyperemesis or this is a cyclic vomiting phenomenon. Patient was hydrated up lab works fairly in line with what I expect there is some mild dehydration but nothing significant patient received IV fluids here. Antiemetics. She will be discharged home with Phenergan for home. - Vital Signs Vital signs: Temp Pulse Resp BP Pulse Ox 97.7 F 107 H 18 123/88 H 97 06/27/17 07:36 06/27/17 07:36 06/27/17 07:36 06/27/17 07:36 06/27/17 07:36 - Laboratory Result Diagrams: 06/27/17 10:35 06/27/17 10:35 Laboratory results interpreted by me: 06/27/17 06/27/17 06/27/17 08:38 10:35 10:35 WBC 12.9 H Hgb 11.7 L Hct 35.1 L Seg Neutrophils % 90.4 H Lymphocytes % 6.0 L Absolute Neutrophils 11.6 H Carbon Dioxide 20 L Glucose 176 H Beta HCG, Quant 82385.00 H Urine Protein 100 H Urine Glucose (UA) 50 H Urine Ketones 80 H Urine Bilirubin SMALL H Urine Urobilinogen 2.0 H Discharge - Discharge Clinical Impression: Hyperemesis gravidarum Cyclical vomiting syndrome Qualifiers: Vomiting Intractability: intractable Nausea presence: with nausea Qualified Code(s): G43.A1 - Cyclical vomiting, intractable Condition: Fair Disposition: HOME, SELF-CARE Instructions: Hyperemesis Gravidarum ([facility]) Prescriptions: Promethazine HCl [Phenergan 25 mg Tablet] 1 - 2 tab PO Q6H PRN #15 tablet PRN Reason: Referrals: SHIRLENE WARD MD [Primary Care Provider] - Follow up as needed
[2017-06-27 09:36] LABS: APPEARANCE,URINE SLIGHTLY-CLOUDY; BILIRUBIN,URINE SMALL (NEGATIVE); COLOR,URINE DARK YELLOW; GLUCOSE, URINE 50 mg/dL (NEGATIVE); KETONES,URINE 80 mg/dL (NEGATIVE); LEUKOCYTE ESTERASE,URINE NEGATIVE (NEGATIVE); NITRITE,URINE NEGATIVE (NEGATIVE); PROTEIN,URINE 100 mg/dL (NEGATIVE); URINE SPECIFIC GRAVITY 1.036
[2017-06-27 09:54] LABS: URINE AMPHETAMINES SCREEN NEGATIVE; URINE BARBITURATES SCREEN NEGATIVE; URINE BENZODIAZEPINES SCREEN NEGATIVE; URINE COCAINE SCREEN NEGATIVE; URINE MARIJUANA (THC) SCREEN UNCONFIRMED POSITIVE; URINE METHADONE SCREEN NEGATIVE; URINE PHENCYCLIDINE SCREEN NEGATIVE
[2017-06-27 10:53] LABS: ABSOLUTE LYMPHOCYTES (AUTO) 0.8 10^3/uL (0.5-4.7); ABSOLUTE MONOCYTES (AUTO) 0.4 10^3/uL (0.1-1.4); ABSOLUTE NEUT (AUTO) 11.6 10^3/uL (1.7-8.2); BASOPHILS % (AUTO) 0.2 % (0-2); HEMATOCRIT 35.1 % (36.0-47.0); HEMOGLOBIN 11.7 g/dL (12.0-15.5); MEAN CORPUSCULAR HEMOGLOBIN 28.5 pg (27.0-33.4); MEAN CORPUSCULAR HGB CONC 33.3 g/dL (32.0-36.0); MEAN CORPUSCULAR VOLUME 85 fl (80-97); MONOCYTES % (AUTO) 3.4 % (3-13); PLATELET COUNT 430 10^3/uL (150-450); RED BLOOD COUNT 4.11 10^6/uL (3.72-5.28); SEGMENTED NEUTROPHILS % (AUTO) 90.4 % (42-78); TOTAL CELLS COUNTED % (AUTO) 100 %; WHITE BLOOD COUNT 12.9 10^3/uL (4.0-10.5)
[2017-06-27] MEDS ORDERED: PROMETHAZINE HCL INJ 25 MG/1 ML VIAL IV ONE (10:54)
[2017-06-27] MEDS ORDERED: MAG HYDROX/AL HYDROX/SIMETH SUSP 30 ML UDCUP PO ONE (10:54)
[2017-06-27] MEDS ORDERED: LIDOCAINE 2% VISCOUS SOLN 20 ML UDCUP PO ONE (10:54)
[2017-06-27 11:25] LABS: ALANINE AMINOTRANSFERASE 36 U/L (9-52); ALKALINE PHOSPHATASE 112 U/L (38-126); ANION GAP 14 (5-19); ASPARTATE AMINO TRANSFERASE 24 U/L (14-36); BILIRUBIN,DIRECT 0.1 mg/dL (0.0-0.4); BILIRUBIN,TOTAL 0.4 mg/dL (0.2-1.3); BLOOD UREA NITROGEN 16 mg/dL (7-20); CALCIUM 8.7 mg/dL (8.4-10.2); CARBON DIOXIDE 20 mmol/L (22-30); CHLORIDE 106 mmol/L (98-107); GLUCOSE 176 mg/dL (75-110); LIPASE 57.4 U/L (23-300); SODIUM 140.2 mmol/L (137-145); TOTAL PROTEIN 6.4 g/dL (6.3-8.2)
[2017-06-27 12:13] VITALS: BP 128/82
== END 2017-06-27 12:14 | disposition home or self-care (01) ==
LOC: ER 07:26
DX: O21.0 Mild hyperemesis gravidarum (principal); G43.A1 Cyclical vomiting, in migraine, intractable; O99.332 Smoking (tobacco) complicating pregnancy, second trimester; Z3A.16 16 weeks gestation of pregnancy
CPT/HCPCS: 99283; 96361; 96374; 96375; 36415; 84702; 83690; 85025; 80053; 81001; 80307; J3490 ×2; J2550; J2405

== ENCOUNTER 2017-09-23 03:53 | Inpatient (IN) | payer MEDICAID ==
[2017-09-23] MEDS ORDERED: LIDOCAINE 1% INJ-PF (10 MG/ML) 30 ML SDV ONE (04:02)
[2017-09-23] MEDS ORDERED: MISOPROSTOL 0.2 MG TABLET ONE (04:02)
[2017-09-23] MEDS ORDERED: OXYTOCIN 10 UNIT/ML VIAL ONE (04:02)
[2017-09-23] MEDS ORDERED: OXYTOCIN/NORMAL SALINE 20 UNIT/1,000 ML RTUINJ ONE (04:02)
[2017-09-23] MEDS ORDERED: RINGERS SOLUTION,LACTATED 1,000 ML IV PRN (04:28)
[2017-09-23] MEDS ORDERED: RINGERS SOLUTION,LACTATED 1,000 ML IV ONE (04:28)
[2017-09-23] MEDS ORDERED: ACETAMINOPHEN WITH CODEINE #3 TABLET PO PRN ×2 (04:29)
[2017-09-23] MEDS ORDERED: MAGNESIUM HYDROXIDE SUSP 30 ML UDCUP PO PRN (04:29)
[2017-09-23] MEDS ORDERED: OXYTOCIN/NORMAL SALINE 20 UNIT/1,000 ML RTUINJ IV PRN (04:29)
[2017-09-23] MEDS ORDERED: DIPH/PERTUSS(ACELL)/TETANUS VAC/PF 0.5 ML SYR (>=10YO) IM PRN (04:29)
[2017-09-23] MEDS ORDERED: ACETAMINOPHEN 650 MG SUPP.RECT PR PRN (04:29)
[2017-09-23] MEDS ORDERED: NA PHOS,M-B/NA PHOS,DI-BA (ADULT) 133 ML ENEMA PR PRN (04:29)
[2017-09-23] MEDS ORDERED: PSEUDOEPHEDRINE HCL 30 MG TABLET PO PRN (04:29)
[2017-09-23] MEDS ORDERED: PROMETHAZINE HCL 25 MG TABLET PO PRN (04:29)
[2017-09-23] MEDS ORDERED: GLYCERIN/WITCH HAZEL LEAF 1 EACH MED..PAD TP PRN (04:29)
[2017-09-23] MEDS ORDERED: BENZOCAINE/MENTHOL AEROSOL SPRAY 56 ML TOP PRN (04:29)
[2017-09-23] MEDS ORDERED: PROMETHAZINE HCL 25 MG SUPP.RECT PR PRN (04:29)
[2017-09-23] MEDS ORDERED: DIPHENHYDRAMINE HCL 25 MG CAPSULE PO PRN (04:29)
[2017-09-23] MEDS ORDERED: ZOLPIDEM TARTRATE 5 MG TABLET PO PRN (04:29)
[2017-09-23] MEDS ORDERED: MEASLES,MUMPS&RUBELLA VACC/PF 0.5 ML VIAL SUBCUT PRN (04:29)
[2017-09-23] MEDS ORDERED: DIBUCAINE 1% OINTMENT 28 GM TP PRN (04:29)
[2017-09-23] MEDS ORDERED: ONDANSETRON HCL INJ/PF 4 MG/2 ML SDV IV PRN (04:35)
[2017-09-23] MEDS ORDERED: ONDANSETRON HCL INJ/PF 4 MG/2 ML SDV ONE (04:36)
--- NOTE | 2017-09-23 04:48 | Admission Physical ---
Datetime Report Generated by CPN: 09/23/2017 04:47 CURRENT ADMISSION Chief Complaint: Uterine Contractions; Suspected Ruptured Membranes Admit Impression : Term, Intrauterine Admit Plan: Admit to Unit; Initiate Labor Protocol ALLERGIES Medication Allergies: No Known Allergies (06/27/2017) OBSTETRICAL HISTORY : 3 Para: 1 PHYSICAL EXAM General: Normal HEENT: Normal Neurologic: Normal Thyroid: Deferred Heart: Normal Lungs: Normal Breast: Deferred Back: Normal Abdomen: Normal Genitourinary Exam: Normal Extremities: Normal DTRs: Normal Pelvic Type: Adequate Vital Signs: Reviewed FETUS A Admit Comment: 21yo at reportedly 38+0ega (RONEL reported ) presents with SROM clear fluid at 0230 and upon arrival to L_D was completely dilated. No records. Pt reports that she was cared for at [facility]. Will attempt to obtain records - if unable to then will get no care labs. GBS unknown. Not enought time to get PCN. Pt was only on floor for approx 10 mintues before delivery. Will make nursery aware. INFORMED CONSENT Informed Consent Obtained: Vaginal Delivery; Risks, Benefits and Alternatives Discussed Signature: with User ID: [email or web address]
[2017-09-23 05:01] LABS: URINE AMPHETAMINES SCREEN NEGATIVE; URINE BARBITURATES SCREEN NEGATIVE; URINE BENZODIAZEPINES SCREEN NEGATIVE; URINE COCAINE SCREEN NEGATIVE; URINE METHADONE SCREEN NEGATIVE; URINE PHENCYCLIDINE SCREEN NEGATIVE
--- NOTE | 2017-09-23 05:19 | Delivery Summary ---
Del Sum A-C Datetime Report Generated by CPN: 09/23/2017 05:19 DELIVERY PERSONNEL DELIVERY PERSONNEL: [id number] Delivery Doctor:: Negar Smart MD Labor and Delivery Nurse:: Mckenzie Weathers RNpublicity manager Nurse:: Amanda Saldana RN Nursery Nurse:: Manju Mason RN Bicycle Repairman/CATALYST IMPREGNATOR: Jossie Licona, ST MATERNAL INFORMATION Delivery Anesthesia: None Medications After Delivery: Pitocin Drip 20 Units/1000ml NSS Maternal Complications: Precipitous Labor (<3hrs) Provider Comments: VMI delivered in KURT presentation. Loose nuchal cord x one easily reduced. SHoulders and body delivered without difficulty. Cord doubly clamped and cut and infant to maternal abd for NRP. Placenta delivered intact spontaneously. FF at U. Good hemostasis after repair fo laceration. Mother and baby stable upon provider leaving the room. LABOR SUMMARY EDC: 10/05/2017 00:00 No. Babies in Womb: 1 Attempted: No Labor Anesthesia: None LABOR INFORMATION Reason for Induction: Not Applicable Onset of Labor: 09/23/2017 02:30 Complete Dilatation: 09/23/2017 03:54 Oxytocin: N/A Group B Beta Strep: unknown Antibiotics # of Doses: 0 Steroids Given: None Reason Steroids Not Administered: Not Applicable MEMBRANES Membranes Rupture Method: Spontaneous Rupture of Membranes: 09/23/2017 02:30 Length of Rupture (hr): 1.68 Amniotic Fluid Color: Clear Amniotic Fluid Amount: Moderate Amniotic Fluid Odor: Normal STAGES OF LABOR Stage 1 hr: 1 Stage 1 min: 24 Stage 2 hr: 0 Stage 2 min: 17 Stage 3 hr: 0 Stage 3 min: 4 Total Time in Labor hr: 1 Total Time in Labor min: 45 VAGINAL DELIVERY Episiotomy: None Laceration #1: Perineal Laceration Extension #1: First Degree Laceration #2: Vaginal Laceration Extension #2: N/A Laceration Repair: Yes Laceration Repair Note: right labial laceration and 1st degree midline perineal laceration Sponge Count Correct: Yes Sharps Count Correct: Yes CSECTION DELIVERY Primary Indication: N/A Secondary Indication: N/A CSection Incidence: N/A Labor: N/A Elective: N/A CSection Incision: N/A BABY A INFORMATION Infant Delivery Date/Time: 09/23/2017 04:11 Method of Delivery: Vaginal Born in Route : No : N/A Forceps: N/A Vacuum Extraction: N/A Shoulder Dystocia : No PRESENTATION/POSITION BABY A Presentation: Cephalic Cephalic Presentation: Vertex Vertex Position: Left Occipital Anterior Breech Presentation: N/A PLACENTA INFORMATION BABY A Placenta Delivery Time : 09/23/2017 04:15 Placenta Method of Delivery: Spontaneous Placenta Status: Delivered SCORES BABY A Heart Rate 1 min: >100 bpm Resp Effort 1 min: Good Cry Reflex Irritability 1 min: Cough or Sneeze or Pulls Away Muscle Tone 1 min: Active Motion Color 1 min: Blue/Pale SCORE 1 MIN: 8 Heart Rate 5 min: >100 bpm Resp Effort 5 min: Good Cry Reflex Irritability 5 min: Cough or Sneeze or Pulls Away Muscle Tone 5 min: Active Motion Color 5 min: Body [place], Extremities Blue SCORE 5 MIN: 9 INFANT INFORMATION BABY A Gestational Age at Delivery: 38.2 Gestational Status: Early Term- 37- 38.6 Weeks Outcome : Liveborn Infant Condition : Stable Infant Sex: Male IDENTIFICATION BABY A Infant Verification Date/Time: 09/23/2017 04:35 ID Band Number: [id number] Mother's Name Verified: Yes Infant RN Verifying : SClaudia Marmolejo, RNC _ Angy Carlton, RN WEIGHT/LENGTH BABY A Infant Birthweight (gm): 3180 Weight (lb): 7 Infant Weight (oz): 0 Infant Length (in): 20.00 Infant Length (cm): 50.80 CORD INFORMATION BABY A No. Cord Vessels: 3 Nuchal Cord : Around Neck x1, Loose Cord Blood Taken: Yes-For Storage (Mom's Blood type +) Infant Suction: Mouth; Nose ASSESSMENT BABY A Complications: None Physical Findings at Delivery: Within Normal Limits Respirations: Appears Normal Skin to Skin: Yes Skin to Skin Time (min): 44 BABY B INFORMATION : N/A SIGNATURES Signature: with User ID: [email or web address]
--- NOTE | 2017-09-23 05:19 | Warning Signs in Babies ---
VOD Warning Signs Datetime Report Generated by [facility]: 09/23/2017 05:19 VOD#608 -Warning Signs in Babies: Viewed with Parent(s)/Family (06/27/2017 07:05:Mckenzie Weathers RN)
[2017-09-23] MEDS ORDERED: PROMETHAZINE HCL INJ 25 MG/1 ML VIAL ONE (05:33)
[2017-09-23 05:38] LABS: ABSOLUTE LYMPHOCYTES (AUTO) 1.1 10^3/uL (0.5-4.7); ABSOLUTE MONOCYTES (AUTO) 0.8 10^3/uL (0.1-1.4); ABSOLUTE NEUT (AUTO) 12.1 10^3/uL (1.7-8.2); BASOPHILS % (AUTO) 0.2 % (0-2); HEMATOCRIT 32.7 % (36.0-47.0); HEMOGLOBIN 10.7 g/dL (12.0-15.5); LYMPHOCYTES % (AUTO) 8.1 % (13-45); MEAN CORPUSCULAR HEMOGLOBIN 24.8 pg (27.0-33.4); MEAN CORPUSCULAR HGB CONC 32.7 g/dL (32.0-36.0); MEAN CORPUSCULAR VOLUME 76 fl (80-97); MONOCYTES % (AUTO) 5.8 % (3-13); PLATELET COUNT 296 10^3/uL (150-450); RED BLOOD COUNT 4.32 10^6/uL (3.72-5.28); RED CELL DISTRIBUTION WIDTH 16.1 % (11.5-14.0); SEGMENTED NEUTROPHILS % (AUTO) 85.9 % (42-78); TOTAL CELLS COUNTED % (AUTO) 100 %; WHITE BLOOD COUNT 14.1 10^3/uL (4.0-10.5)
[2017-09-23] MEDS: PROMETHAZINE HCL INJ 25 MG/1 ML VIAL IV PRN ×4 (05:41→19:53)
[2017-09-23 06:05] LABS: URINE MARIJUANA (THC) SCREEN UNCONFIRMED POSITIVE
[2017-09-23 08:28] LABS: RUBELLA INTERPRETATION POSITIVE
[2017-09-23] MEDS: IBUPROFEN 800 MG TABLET PO SCH ×2 (09:59→13:02)
[2017-09-23] MEDS: FERROUS SULFATE 325 MG TABLET PO SCH ×2 (10:25→18:29)
[2017-09-23] MEDS: FAMOTIDINE 20 MG TABLET PO SCH (10:25)
[2017-09-23] MEDS: DOCUSATE SODIUM 100 MG CAPSULE PO SCH ×2 (10:25→18:29)
[2017-09-23] MEDS: PRENATAL VITAMIN W DHA CAPSULE PO SCH (10:25)
[2017-09-23] MEDS: SENNOSIDES/DOCUSATE 8.6-50 MG 1 EACH TABLET PO SCH (10:25)
[2017-09-23] MEDS: ONDANSETRON 4 MG TAB.RAPDIS PO PRN ×3 (13:00→23:03)
[2017-09-23 21:20] LABS: CHLAM PCR NOT DETECTED (NOT DETECT); GON PCR NOT DETECTED (NOT DETECT)
[2017-09-24] MEDS: FAMOTIDINE 20 MG TABLET PO SCH ×3 (02:59→21:41)
[2017-09-24] MEDS: IBUPROFEN 800 MG TABLET PO SCH ×4 (02:59→21:41)
[2017-09-24] MEDS: PROMETHAZINE HCL INJ 25 MG/1 ML VIAL IV PRN ×2 (04:18→08:32)
[2017-09-24] MEDS: ONDANSETRON 4 MG TAB.RAPDIS PO PRN ×3 (06:28→23:52)
[2017-09-24 07:33] LABS: HEMATOCRIT 29.3 % (36.0-47.0); HEMOGLOBIN 9.7 g/dL (12.0-15.5); MEAN CORPUSCULAR HEMOGLOBIN 25.1 pg (27.0-33.4); MEAN CORPUSCULAR HGB CONC 33.1 g/dL (32.0-36.0); MEAN CORPUSCULAR VOLUME 76 fl (80-97); PLATELET COUNT 314 10^3/uL (150-450); RED BLOOD COUNT 3.86 10^6/uL (3.72-5.28); RED CELL DISTRIBUTION WIDTH 16.1 % (11.5-14.0); WHITE BLOOD COUNT 11.6 10^3/uL (4.0-10.5)
[2017-09-24 08:41] LABS: HEPATITIS C VIRUS AB <0.1 s/co ratio (0.0-0.9)
[2017-09-24] MEDS: PRENATAL VITAMIN W DHA CAPSULE PO SCH (10:06)
[2017-09-24] MEDS: SENNOSIDES/DOCUSATE 8.6-50 MG 1 EACH TABLET PO SCH (10:06)
[2017-09-24] MEDS: FERROUS SULFATE 325 MG TABLET PO SCH ×2 (10:06→18:09)
[2017-09-24] MEDS: DOCUSATE SODIUM 100 MG CAPSULE PO SCH ×2 (10:06→18:09)
[2017-09-24 10:31] LABS: HEPATITS B SURFACE ANTIGEN Negative (Negative)
--- NOTE | 2017-09-24 11:37 | PDOC PROGRESS REPORT ---
Subjective-OB Progress Note for:: 09/24/17 Subjective: Pt doing well, no concerns. She reports light bleeding, regular diet, no difficulty voiding. Physical Exam (OB) Vital Signs: Temp Pulse Resp BP Pulse Ox 98.7 F 70 16 128/77 H 97 09/24/17 08:03 09/24/17 08:03 09/24/17 08:03 09/24/17 08:03 09/24/17 08:03 Intake & Output 09/23/17 09/24/17 09/25/17 06:59 06:59 06:59 Intake Total 10 Balance 10 Weight 72 kg - Abdomen Description: Soft, Round Hernia Present: No Fundal Description: Firm, Midline Fundal Height: u/u - u/2 Objective-Diagnostic Laboratory: 09/24/17 06:57 09/24/17 06:57 WBC 11.6 H RBC 3.86 Hgb 9.7 L Hct 29.3 L MCV 76 L MCH 25.1 L MCHC 33.1 RDW 16.1 H Plt Count 314 Assessment and Plan(PN) - Assessment and Plan (1) Obstetrical laceration, first degree Is this a current diagnosis for this admission?: Yes (2) Vaginal delivery Is this a current diagnosis for this admission?: Yes - Time Spent with Patient Time with patient: Less than 15 minutes Medications reviewed and adjusted accordingly: Yes - Disposition Anticipated Discharge: Home Within: within 24 hours
[2017-09-25] MEDS: IBUPROFEN 800 MG TABLET PO SCH ×2 (05:34→13:59)
[2017-09-25] MEDS: ONDANSETRON 4 MG TAB.RAPDIS PO PRN (08:43)
--- NOTE | 2017-09-25 08:52 | PDOC DISCHARGE SUMMARY ---
Final Diagnosis Discharge Date: 09/25/17 - Final Diagnosis (1) Obstetrical laceration, first degree Is this a current diagnosis for this admission?: Yes (2) Vaginal delivery Is this a current diagnosis for this admission?: Yes Discharge Data - Discharge Medication Home Medications: Promethazine HCl [Phenergan 25 mg Tablet] 1 - 2 tab PO Q6H PRN #15 tablet Reason(s) for Admission: Onset of Labor Procedures: NST Intrapartum Procedure(s): Spontaneous Vaginal Delivery Complication(s): Laceration-Perineal Laceration-Degree: 1st - Diagnosis Test Laboratory: Temp Pulse Resp BP Pulse Ox 98.4 F 60 14 113/66 99 09/25/17 07:46 09/25/17 07:46 09/25/17 07:46 09/25/17 07:46 09/25/17 07:46 09/23/17 09/23/17 09/24/17 04:14 05:05 06:57 RBC 4.32 3.86 Hgb 10.7 L 9.7 L Hct 32.7 L 29.3 L Urine Opiates Screen NEGATIVE - Discharge information/Instructions Discharge Activity: Balance Activity w/Rest, Pelvic Rest Discharge Diet: Regular Disposition: HOME, SELF-CARE Follow up with: [facility] in: 4, Weeks
[2017-09-25] MEDS: DOCUSATE SODIUM 100 MG CAPSULE PO SCH (09:53)
[2017-09-25] MEDS: FERROUS SULFATE 325 MG TABLET PO SCH (09:54)
[2017-09-25] MEDS: PRENATAL VITAMIN W DHA CAPSULE PO SCH (09:54)
[2017-09-25] MEDS: SENNOSIDES/DOCUSATE 8.6-50 MG 1 EACH TABLET PO SCH (09:55)
[2017-09-25] MEDS: FAMOTIDINE 20 MG TABLET PO SCH (09:55)
[2017-09-25 10:56] VITALS: BP 125/72
== END 2017-09-25 14:13 | disposition home or self-care (01) | DRG 775 ==
LOC: LC 03:53 → LR 04:00 → 2S 06:30
PROVIDERS: ADMIT Student in an Organized Health Care Education/Training Program; ATTEND Student in an Organized Health Care Education/Training Program
PROC: 10E0XZZ Delivery of Products of Conception, External Approach (ICD-10-PCS; principal; 2017-09-23)
PROC: 0HQ9XZZ Repair Perineum Skin, External Approach (ICD-10-PCS; 2017-09-23)
PROC: 4A1HXCZ Monitoring of Products of Conception, Cardiac Rate, External Approach (ICD-10-PCS; 2017-09-23)
PROC: 3E0234Z Introduction of Serum, Toxoid and Vaccine into Muscle, Percutaneous Approach (ICD-10-PCS; 2017-09-25)
DX: O62.3 Precipitate labor (principal); O69.81X0 Labor and delivery complicated by cord around neck, without compression, not applicable or unspecified; O70.0 First degree perineal laceration during delivery; Z3A.38 38 weeks gestation of pregnancy; Z37.0 Single live birth; Z23 Encounter for immunization
CPT/HCPCS: 36415; 80307; 83655; 85025; 85027; 86592; 86701; 86702; 86762; 86803; 86804; 86850; 86900; 86901; 87340; 87491; 87591; 88307; 90715; G0480; J2405; J2550; J2590; J3490; S0119

== ENCOUNTER 2017-10-02 15:42 | Emergency (ER) | payer MEDICAID ==
--- NOTE | 2017-10-02 16:05 | ER Document Report ---
ED Medical Screen (RME) - General Chief Complaint: Psych Problem Stated Complaint: PSYCH PROBLEMS Time Seen by Provider: 10/02/17 15:52 Mode of Arrival: Ambulatory Information source: Patient Notes: I have greeted and performed a rapid initial assessment of this patient. A comprehensive ED assessment and evaluation of the patient, analysis of test results and completion of the medical decision making process will be conducted by additional ED providers. 21-year-old female presents emergency department with complaints of suicidal ideations. Patient has been thinking of overdosing on prescription medication. This is been present for the last 9 days. Patient gave 9 days ago and states that she has been struggling with depression. Patient states that she feels sad and not good enough to care for her son. She is disappointed with the way that she feels. This is her 2nd . 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 Patient's states that she is supposed to be going to counseling and on medication but the patient has done neither. Patient denies any homicidal ideations. Patient denies thinking about harming the baby. Patient denies any delusions or hallucinations. PHYSICAL EXAMINATION: GENERAL: Tearful. Sad. HEAD: Atraumatic, normocephalic. EYES: Pupils equal round extraocular movements intact, conjunctiva are normal. ENT: Nares patent NECK: Normal range of motion LUNGS: No respiratory distress Musculoskeletal: Normal range of motion NEUROLOGICAL: Normal speech, normal gait. PSYCH: Sad. Tearful SKIN: Warm, Dry, normal turgor, no rashes or lesions noted. TRAVEL OUTSIDE OF THE [place] IN LAST 30 DAYS: No - Related Data Allergies/Adverse Reactions: No Known Allergies Allergy (Verified 10/02/17 15:44) Past Medical History - Past Medical History Cardiac Medical History: Reports: Hx Hypertension Denies: Hx Congestive Heart Failure, Hx Heart Attack Pulmonary Medical History: Reports: Hx Asthma Denies: Hx Bronchitis, Hx COPD, Hx Pneumonia, Hx Tuberculosis Neurological Medical History: Denies: Hx Seizures Renal/ Medical History: Denies: Hx End Stage Renal Disease, Hx Kidney Stones, Hx Peritoneal Dialysis GI Medical History: Reports: Hx Gastroesophageal Reflux Disease. Denies: Hx Ulcer Musculoskeltal Medical History: Denies Hx Arthritis Psychiatric Medical History: Denies: Hx Bipolar Disorder, Hx Depression, Hx Schizophrenia Past Surgical History: Reports: Hx Adenoidectomy, Hx Tonsillectomy - Immunizations Hx Diphtheria, Pertussis, Tetanus Vaccination: Yes History of Influenza Vaccine for 12/2016 - 05/2017 Season: Refused Physical Exam - Vital signs Vitals: Temp Pulse Resp BP Pulse Ox 98.1 F 86 16 112/72 94 10/02/17 15:45 10/02/17 15:45 10/02/17 15:45 10/02/17 15:45 10/02/17 15:45 Course - Vital Signs Vital signs: Temp Pulse Resp BP Pulse Ox 98.1 F 86 16 112/72 94 10/02/17 15:45 10/02/17 15:45 10/02/17 15:45 10/02/17 15:45 10/02/17 15:45 Doctor's Discharge - Discharge Referrals: SHIRLENE WARD MD [Primary Care Provider] - Follow up as needed
[2017-10-02 16:57] LABS: ABSOLUTE EOSINOPHILS # (AUTO) 0.1 10^3/uL (0.0-0.6); ABSOLUTE LYMPHOCYTES (AUTO) 2.2 10^3/uL (0.5-4.7); ABSOLUTE MONOCYTES (AUTO) 0.6 10^3/uL (0.1-1.4); ABSOLUTE NEUT (AUTO) 4.7 10^3/uL (1.7-8.2); BASOPHILS % (AUTO) 0.4 % (0-2); EOSINOPHILS % (AUTO) 0.9 % (0-6); HEMOGLOBIN 11.6 g/dL (12.0-15.5); LYMPHOCYTES % (AUTO) 28.8 % (13-45); MEAN CORPUSCULAR HEMOGLOBIN 24.8 pg (27.0-33.4); MEAN CORPUSCULAR HGB CONC 32.4 g/dL (32.0-36.0); MEAN CORPUSCULAR VOLUME 77 fl (80-97); MONOCYTES % (AUTO) 8.3 % (3-13); PLATELET COUNT 476 10^3/uL (150-450); RED BLOOD COUNT 4.69 10^6/uL (3.72-5.28); RED CELL DISTRIBUTION WIDTH 17.5 % (11.5-14.0); SEGMENTED NEUTROPHILS % (AUTO) 61.6 % (42-78); TOTAL CELLS COUNTED % (AUTO) 100 %; WHITE BLOOD COUNT 7.6 10^3/uL (4.0-10.5)
[2017-10-02 17:18] LABS: ALANINE AMINOTRANSFERASE 23 U/L (9-52); ALBUMIN 3.9 g/dL (3.5-5.0); ALKALINE PHOSPHATASE 125 U/L (38-126); ANION GAP 12 (5-19); ASPARTATE AMINO TRANSFERASE 19 U/L (14-36); BILIRUBIN,DIRECT 0.3 mg/dL (0.0-0.4); BILIRUBIN,TOTAL 0.5 mg/dL (0.2-1.3); BLOOD UREA NITROGEN 14 mg/dL (7-20); CALCIUM 9.3 mg/dL (8.4-10.2); CARBON DIOXIDE 23 mmol/L (22-30); CHLORIDE 108 mmol/L (98-107); GLUCOSE 72 mg/dL (75-110); POTASSIUM 4.4 mmol/L (3.6-5.0); SODIUM 142.7 mmol/L (137-145); TOTAL PROTEIN 6.9 g/dL (6.3-8.2)
[2017-10-02 17:20] LABS: ACETAMINOPHEN < 10 ug/mL (10-30); ALCOHOL < 10 mg/dL (NONE DETECTED); SALICYLATE < 1.0 mg/dL (2.0-20.0)
[2017-10-02 18:48] LABS: AMORPHOUS SEDIMENT,URINE 1+ /HPF; APPEARANCE,URINE TURBID; BILIRUBIN,URINE NEGATIVE (NEGATIVE); COLOR,URINE YELLOW; GLUCOSE, URINE NEGATIVE (NEGATIVE); KETONES,URINE TRACE mg/dL (NEGATIVE); LEUKOCYTE ESTERASE,URINE MODERATE (NEGATIVE); NITRITE,URINE NEGATIVE (NEGATIVE); PROTEIN,URINE NEGATIVE (NEGATIVE); URINE SPECIFIC GRAVITY 1.031; UROBILINOGEN,URINE NEGATIVE mg/dL (<2.0)
[2017-10-02 19:00] LABS: URINE AMPHETAMINES SCREEN NEGATIVE; URINE BARBITURATES SCREEN NEGATIVE; URINE BENZODIAZEPINES SCREEN NEGATIVE; URINE COCAINE SCREEN NEGATIVE; URINE MARIJUANA (THC) SCREEN UNCONFIRMED POSITIVE; URINE METHADONE SCREEN NEGATIVE; URINE PHENCYCLIDINE SCREEN NEGATIVE
--- NOTE | 2017-10-02 20:41 | EKG REPORT ---
SEVERITY:- ABNORMAL ECG - SINUS TACHYCARDIA NONSPECIFIC T ABNORMALITIES, INFERIOR LEADS : Confirmed by: Nakia Walkre MD 02-Oct-2017 20:41:05
--- NOTE | 2017-10-02 21:15 | ER Document Report ---
ED General - General Mode of Arrival: Ambulatory TRAVEL OUTSIDE OF THE [place]. IN LAST 30 DAYS: No - HPI Patient complains to provider of: Suicidal ideation depression <SULY HOBSON - Last Filed: 10/02/17 23:48> <ANTONELLA MAYO - Last Filed: 10/04/17 03:06> <ANNEMARIE CAI - Last Filed: 10/04/17 11:28> <SATURNINO ABERNATHY - Last Filed: 10/04/17 12:38> - General Chief Complaint: Psych Problem Stated Complaint: PSYCH PROBLEMS Time Seen by Provider: 10/02/17 15:52 - HPI Notes: Patient coming in for the above-stated symptoms. Patient states he is a recent of her child. Patient states last time she delivered has significant depression in the inpatient for 45 days and [place] placed on Haldol. Patient states symptoms this time worse having more thoughts about suicide Patient denies any plan. Patient resting comfortably upon my evaluation. Patient states she is currently breast-feeding her child. (SULY HOBSON) - Related Data Allergies/Adverse Reactions: No Known Allergies Allergy (Verified 10/02/17 15:44) Past Medical History - General Information source: Patient - Social History Smoking Status: Never Smoker Chew tobacco use (# tins/day): No Frequency of alcohol use: Rare Drug Abuse: Marijuana Family History: Reviewed & Not Pertinent Patient has suicidal ideation: Yes Patient has homicidal ideation: No - Past Medical History Cardiac Medical History: Reports: Hx Hypertension Denies: Hx Congestive Heart Failure, Hx Heart Attack Pulmonary Medical History: Reports: Hx Asthma Denies: Hx Bronchitis, Hx COPD, Hx Pneumonia, Hx Tuberculosis Neurological Medical History: Denies: Hx Seizures Renal/ Medical History: Denies: Hx End Stage Renal Disease, Hx Kidney Stones, Hx Peritoneal Dialysis GI Medical History: Reports: Hx Gastroesophageal Reflux Disease. Denies: Hx Ulcer Musculoskeletal Medical History: Denies Hx Arthritis Psychiatric Medical History: Denies: Hx Bipolar Disorder, Hx Depression, Hx Schizophrenia Past Surgical History: Reports: Hx Adenoidectomy, Hx Tonsillectomy - Immunizations Hx Diphtheria, Pertussis, Tetanus Vaccination: Yes <SULY HOBSON - Last Filed: 10/02/17 23:48> Review of Systems - Review of Systems Constitutional: No symptoms reported EENT: No symptoms reported Cardiovascular: No symptoms reported Respiratory: No symptoms reported Gastrointestinal: No symptoms reported Genitourinary: No symptoms reported Female Genitourinary: No symptoms reported Musculoskeletal: No symptoms reported Skin: No symptoms reported Hematologic/Lymphatic: No symptoms reported Neurological/Psychological: Depression, Suicidal ideation -: Yes All other systems reviewed and negative <SULY HOBSON - Last Filed: 10/02/17 23:48> Physical Exam - Vital signs Interpretation: Normal - General General appearance: Appears well, Alert - HEENT Head: Normocephalic, Atraumatic Eyes: Normal Pupils: PERRL - Respiratory Respiratory status: No respiratory distress Chest status: Nontender Breath sounds: Normal Chest palpation: Normal - Cardiovascular Rhythm: Regular Heart sounds: Normal auscultation Murmur: No - Abdominal Inspection: Normal Distension: No distension Bowel sounds: Normal Tenderness: Nontender Organomegaly: No organomegaly - Back Back: Normal, Nontender - Extremities General upper extremity: Normal inspection, Nontender, Normal color, Normal ROM , Normal temperature General lower extremity: Normal inspection, Nontender, Normal color, Normal ROM , Normal temperature, Normal weight bearing. No: Neeraj's sign - Neurological Neuro grossly intact: Yes Cognition: Normal Orientation: AAOx4 Wal[place] Coma Scale Eye Opening: Spontaneous [place] Coma Scale Verbal: Oriented Hernandez Coma Scale Motor: Obeys Commands Walbridge Coma Scale Total: 15 Speech: Normal Motor strength normal: LUE, RUE, LLE, RLE Sensory: Normal - Psychological Associated symptoms: Tearful - Skin Skin Temperature: Warm Skin Moisture: Dry Skin Color: Normal <SULY HOBSON - Last Filed: 10/02/17 23:48> - Vital signs Vitals: Temp Pulse Resp BP Pulse Ox 98.1 F 86 16 112/72 94 10/02/17 15:45 10/02/17 15:45 10/02/17 15:45 10/02/17 15:45 10/02/17 15:45 Course - Laboratory Result Diagrams: 10/02/17 16:37 10/02/17 16:37 <SULY HOBSON - Last Filed: 10/02/17 23:48> - Laboratory Result Diagrams: 10/02/17 16:37 10/02/17 16:37 <ANTONELLA MAYO - Last Filed: 10/04/17 03:06> - Laboratory Result Diagrams: 10/02/17 16:37 10/02/17 16:37 <ANNEMARIE CAI - Last Filed: 10/04/17 11:28> - Laboratory Result Diagrams: 10/02/17 16:37 10/02/17 16:37 <SATURNINO ABERNATHY - Last Filed: 10/04/17 12:38> - Re-evaluation Re-evalutation: 10/02/17 23:35 Laboratory studies show no critical pathology. Patient was gave therefore patient patient recently gave will likely still residual beta- hCG quantitative is only 27. Did not believe this is a new . Patient is medically clear for psychiatric evaluation (SULY HOBSON) 10/04/17 03:06 Patient had recurrent vomiting. She has had this a lot in the past. Take her in the past and she does have what appears to be cyclic vomiting syndrome so she with some anxiety. The nurse told me that she continues to spit and gag but is not actually vomiting. She continues to do this over and over over again. Earlier during her stay Haldol has helped her. I gave her another dose of Haldol now she is more calm. She says she has also had some diarrhea but currently is feeling some improved after the Haldol. She does not appear to be any pain. She is overall well-appearing at this time. (ANTONELLA MAYO) - Vital Signs Vital signs: Temp Pulse Resp BP Pulse Ox 98.7 F 92 14 114/76 99 10/04/17 11:00 10/04/17 11:00 10/04/17 11:00 10/04/17 11:00 10/04/17 11:00 - Laboratory Laboratory results interpreted by me: 10/02/17 10/02/17 10/02/17 16:37 16:37 16:37 Hgb 11.6 L MCV 77 L MCH 24.8 L RDW 17.5 H Plt Count 476 H Chloride 108 H Glucose 72 L Beta HCG, Quant Urine Ketones TRACE H Urine Blood LARGE H Ur Leukocyte Esterase MODERATE H Urine HCG, Qual POSITIVE H Salicylates < 1.0 L Acetaminophen < 10 L 10/02/17 16:38 Hgb MCV MCH RDW Plt Count Chloride Glucose Beta HCG, Quant 27.28 H Urine Ketones Urine Blood Ur Leukocyte Esterase Urine HCG, Qual Salicylates Acetaminophen Discharge <SULY HOBSON - Last Filed: 10/02/17 23:48> <ANTONELLA MAYO - Last Filed: 10/04/17 03:06> <ANNEMARIE CAI - Last Filed: 10/04/17 11:28> <JOSEMANUELSATURNINO Deleon - Last Filed: 10/04/17 12:38> - Discharge Clinical Impression: depression, Personality disorder, unspecified Condition: Good Disposition: HOME, SELF-CARE Additional Instructions: You were seen in the Emergency Department and evaluated by the Medical Team and consulted by the Behavioral Health Team for depression and determined to be appropriate for discharge. You were encouraged to follow up with your [facility] and with an outpatient psychiatric provider as well as [facility] the [facility] for ongoing treatment and resources. You were also encouraged to follow all recommendations from DSS/CPS as directed. DEPRESSION: Your evaluation reveals that you have depression. While symptoms may be vague, they often include disturbance of sleep, fatigue, loss of appetite, and general loss of interest in life. While depression may be a side effect of drugs, or a reaction to a major change in your life, many cases have no known cause. If depression is acute, and related to a major loss in your life, you can expect it to clear completely with time. If you have been depressed a long time , are prone to repeated bouts of depression or low mood, or have been thinking of suicide, get help. Depression can be treated with anti-depressant medication and counseling. Long-term depression will often take a few weeks to clear, even with appropriate medication. Follow-up care is important. FOLLOW-UP CARE: If you have been referred to a physician for follow-up care, call the physician s office for an appointment as you were instructed or within the next two days. ~ If you experience worsening or a significant change in your symptoms, notify the physician immediately or return to the Emergency Department at any time for re-evaluation. Referrals: SHIRLENE WARD MD [Primary Care Provider] - Follow up as needed
[2017-10-03] MEDS ORDERED: ACETAMINOPHEN 325 MG TABLET PO ONE ×2 (03:14→12:43)
[2017-10-03] MEDS ORDERED: CITALOPRAM HYDROBROMIDE 20 MG TABLET PO SCH (11:00)
[2017-10-03] MEDS ORDERED: ONDANSETRON 4 MG TAB.RAPDIS PO ONE ×3 (12:43→18:00)
--- NOTE | 2017-10-03 15:03 | ER Document Report ---
Doctor's Note Notes: 10/03/17 15:01 Patient's records have been reviewed. She has been quite disruptive today standing in the hallway pretending to be throwing up. BARRON has come to speak with her about the baby being positive for THC and she is positive for THC today. BARRON has stated that she will not be allowed to breast- feed, which will make medicating her psychiatric problems a little bit easier, she will be medicated and then we will have her "pump and dump". The plan for now will be to medicate the patient, then reevaluate tomorrow to see if she is stable enough to return to her home with supervised visitation with her children.
[2017-10-03] MEDS ORDERED: HALOPERIDOL LACTATE INJ 5 MG/1 ML VIAL IM ONE (15:05)
[2017-10-03] MEDS ORDERED: BENZTROPINE MESYLATE INJ 2 MG/2 ML AMPULE IM ONE (15:07)
[2017-10-03] MEDS ORDERED: METOCLOPRAMIDE HCL 10 MG TABLET PO ONE (18:00)
[2017-10-03] MEDS ORDERED: HALOPERIDOL 5 MG TABLET PO ONE ×2 (18:00→21:57)
[2017-10-03] MEDS ORDERED: HALOPERIDOL LACTATE INJ 5 MG/1 ML VIAL ONE (23:26)
[2017-10-04] MEDS ORDERED: HALOPERIDOL LACTATE INJ 5 MG/1 ML VIAL ONE (02:41)
[2017-10-04 11:21] VITALS: BP 114/76
--- NOTE | 2017-10-04 14:47 | PSYCHOLOGICAL NOTE ---
Psych Note - Psych Note Psych Note: Patient reported she came to the hospital secondary to post depression but since being at the hospital she has become "sick." She stated she is uncontrollably throwing up and has a pain in her stomach. Patient reported a history of previous inpatient psych at [facility] for one week for " depressive suicidal thoughts" but denied any previous suicide attempts. She reported going to a therapist when she was 4-5 years of age secondary to "childhood trauma which I don't want to give you the details." Patient stated she has two children 10 days and 19 months old who are with her but staying with her [id number]. She reported she is not aloud to breast feed secondary to the marijuana in her system but has to "pump and dump." She reported she has no legal charges but her has one felony and three misdemeanors relating to marijuana. She indicated she is unemployed but her works in construction. Patient requested to stay another night and requested more medication secondary to alleged ongoing severe abdominal pain and intractable vomiting. Patient was alert and oriented to person, place, time, and circumstance. Mood was irritable and guarded, affect was mood congruent. She denied suicidal / homicidal ideation, intent or plan. She denied auditory / visual hallucination and delusional thoughts were not present. Thought processes were linear, logical , organized. Conversational speech was within normal limits for rate, tone, and prosody. Eye contact was poor. Short/shelter memory was fair. Intellectual abilities were estimated within the average range. Attention and concentration was poor. Insight, judgment, and impulse control was poor. Patient was observed to be making her self throw up by placing her finger down her throat. During the interview the Patient was observed to be holding the counter of the sink and rocking back and forth for an unknown reason. Following the interview, the Patient entered the hallway and asked for more anti nausea medication and when reminded of the discussion in her room with regard to somaticism, she returned to her room and was observed to no longer be throwing up or have gagging episodes. Diagnoses: 301.9 (F60.9) Unspecified Personality Disorder, with Cluster B Traits Impression / Plan: Patient is recommended for rescind of IVC and cleared from acute psychiatric services. Patient denied suicidal / homicidal ideation, intent or plan. Patient was observed to be making herself throw up and then continually asking for medication to help with nausea and pain. She was observed to exaggerate her medical symptoms but when advised it was felt her symptoms were self-induced and she was capable of managing her symptoms more readily than she was, her symptoms quickly resolved. She was encouraged to follow through with outpatient psychiatric care services and provided information for such, as well as given information for [facility], a program through the [facility] and [facility] for families with children under the ages of 5. She is involved with CPS given her child was born positive for marijuana, and the Patient was encouraged to follow through with CPS directives. ED Physician in agreement with recommendation and disposition.
--- NOTE | 2017-10-07 15:13 | PSYCHOLOGICAL NOTE ---
Psych Note - Psych Note Psych Note: Reason for Consult: post- depression Pt states that she is having post- depression. The pt states that this has been going on since giving on 09/23/17. The pt states that she feels sad and disappointed and that she wants to be gone so she isn't around to cause problems anymore. The pt denies HI. The pt states that she has a psych hx. The pt states that this last week has been the worst. She states that previous she has been hospitalized prior for SI/depression. The pt states that she is on pantoprazole and denies being on any other medication. The pt states that she smoked marijuana while , last being smoked a few days ago. Patient disclosed she presented to [facility] ED because of depression. She reports that this is occurred previous after her first born. Patient's son was born 9 days ago. She reports difficulty with mood swings, crying for hours in addition to difficulty with hyperemesis. Patient feels that her overall trigger was constant worry that everything will repeat similar to her first child. She was able to explain her concerns more in that she was very sick during her first and during her second trimester ended up going to [facility] which they identified the patient had a virus which was causing hyperemesis. She reports that they provided her with Haldol which she felt really worked. Patient denied continued use of any medications after that brief inpatient. She discloses that there is no family history of bipolar. Clinician spoke with patient's DSS foster care social worker, Babita Gonzalez [phone]. She discloses the patient will be put on mandatory supervision possibly up to one month. She is concerned the patient is using marijuana and breast-feeding. She reports she plans to come to [facility] ED to speak with the patient about this to enable clinician to assist with crisis intervention if this occurs. Clinician is notified the patient has been acting inappropriate coming out of her room repeatedly, making herself vomit, and laying in the middle of the hallway. Clinician attempted to calm the patient on multiple occasions however patient continued these behaviors. This resulted in the patient needing to be medically and physically restrained for her safety and the safety of others. Patient is alert and orientated to person, place, time and circumstance. Mood is dysphoric with tearful affect. Patient demonstrates psychomotor agitation with constant movement in addition to making herself throw up. Patient denies suicidal and homicidal ideation. Delusions are absent behaviors congruent with intact reality based presentation i.e. organized and linear thought process. Eye contact is fair. Conversational speech was frequently disrupted by the patient vomiting. Intellectual abilities appear to be within the average range. Attention and concentration are poor. Insight, judgment, impulse control are poor. Medication recommended per [facility]'s contracted psychiatrist Dr. Rony EDMONDS are as follows 1. Celexa 20mg daily Diagnosis 311 (F32.8) other specified depressive disorder; depression per history provided by patient Patient is noted to be demonstrating Cluster B personality Traits Impression\plan: Patient is recommended to continue under IVC. Patient discloses a history of depression. She gave to her second child 9 days ago. Medication recommendations have been provided and patient will be reevaluated. Dr. Dos Santos was consulted on the care and management of this patient;attending physician is in agreement with recommendation and disposition.
== END 2017-10-04 13:08 | disposition home or self-care (01) ==
LOC: ER 15:42
DX: F53 Mental and behavioral disorders associated with the puerperium, not elsewhere classified (principal); F60.9 Personality disorder, unspecified; I10 Essential (primary) hypertension; J45.909 Unspecified asthma, uncomplicated; K21.9 Gastro-esophageal reflux disease without esophagitis
CPT/HCPCS: 93005; 99285; 96372; 36415; 80307 ×4; 84702; 85025; 81025; 80053; 81001; 93010; J3490 ×3; S0119; J1630 ×2

== ENCOUNTER → 2019-01-24 | Emergency (ER) | payer SELFPAY ==
[2019-01-24 19:50] VITALS: BP 109/69
--- NOTE | 2019-01-24 19:50 | ER Document Report ---
ED Medical Screen (RME) - General Chief Complaint: Abdominal Pain Stated Complaint: ABDOMINAL PAIN Time Seen by Provider: 01/24/19 19:46 Primary Care Provider: SHIRLENE WARD MD [Primary Care Provider] - Follow up as needed Mode of Arrival: Ambulatory Information source: Patient Notes: 23-year-old female presents to ED for current complaint of abdominal pain pubic and pelvic. She states she had an about 2 months ago and she had bleeding until about a week ago. She states she is continuing to have the headaches and cramping and thick white discharge. She states she did see they can complete the this past about couple hours after she took the second treatment. She states she has not been back to a doctor after the to have in the blood work. She states she has had unprotected sex since the . She denies drinking she states she does smoke 1 or 2 cigarettes a week and occasionally smokes some marijuana. She states she does have occasional nausea no vomiting states she has had diarrhea the past couple days. Denies any other symptoms. I have greeted and performed a rapid initial assessment of this patient. A c omprehensive ED assessment and evaluation of the patient, analysis of test results and completion of medical decision making process will be conducted by an additional ED providers. TRAVEL OUTSIDE OF THE [place] IN LAST 30 DAYS: No - Related Data Allergies/Adverse Reactions: No Known Allergies Allergy (Verified 10/02/17 15:44) Past Medical History - Past Medical History Cardiac Medical History: Reports: Hx Hypertension Denies: Hx Congestive Heart Failure, Hx Heart Attack Pulmonary Medical History: Reports: Hx Asthma Denies: Hx Bronchitis, Hx COPD, Hx Pneumonia, Hx Tuberculosis Neurological Medical History: Denies: Hx Seizures, Hx Parkinson's Disease Renal/ Medical History: Denies: Hx End Stage Renal Disease, Hx Kidney Stones, Hx Peritoneal Dialysis GI Medical History: Reports: Hx Gastroesophageal Reflux Disease. Denies: Hx Ulcer Musculoskeltal Medical History: Denies Hx Arthritis Psychiatric Medical History: Denies: Hx Bipolar Disorder, Hx Depression, Hx Schizophrenia Past Surgical History: Reports: Hx Adenoidectomy, Hx Tonsillectomy - Immunizations Hx Diphtheria, Pertussis, Tetanus Vaccination: Yes Doctor's Discharge - Discharge Referrals: SHIRLENE WARD MD [Primary Care Provider] - Follow up as needed
[2019-01-24 20:17] LABS: ABSOLUTE EOSINOPHILS # (AUTO) 0.1 10^3/uL (0.0-0.6); ABSOLUTE LYMPHOCYTES (AUTO) 2.2 10^3/uL (0.5-4.7); ABSOLUTE NEUT (AUTO) 7.1 10^3/uL (1.7-8.2); BASOPHILS % (AUTO) 0.4 % (0-2); EOSINOPHILS % (AUTO) 0.6 % (0-6); HEMATOCRIT 45.3 % (36.0-47.0); HEMOGLOBIN 15.3 g/dL (12.0-15.5); LYMPHOCYTES % (AUTO) 21.3 % (13-45); MEAN CORPUSCULAR HEMOGLOBIN 29.4 pg (27.0-33.4); MEAN CORPUSCULAR HGB CONC 33.8 g/dL (32.0-36.0); MEAN CORPUSCULAR VOLUME 87 fl (80-97); MONOCYTES % (AUTO) 9.3 % (3-13); PLATELET COUNT 343 10^3/uL (150-450); RED BLOOD COUNT 5.21 10^6/uL (3.72-5.28); SEGMENTED NEUTROPHILS % (AUTO) 68.4 % (42-78); TOTAL CELLS COUNTED % (AUTO) 100 %; WHITE BLOOD COUNT 10.3 10^3/uL (4.0-10.5)
[2019-01-24 20:35] LABS: APPEARANCE,URINE SLIGHTLY-CLOUDY; BILIRUBIN,URINE NEGATIVE (NEGATIVE); COLOR,URINE YELLOW; GLUCOSE, URINE NEGATIVE (NEGATIVE); KETONES,URINE NEGATIVE (NEGATIVE); PROTEIN,URINE NEGATIVE (NEGATIVE); URINE SPECIFIC GRAVITY 1.031; UROBILINOGEN,URINE NEGATIVE mg/dL (<2.0)
[2019-01-24 20:38] LABS: ALBUMIN 4.7 g/dL (3.5-5.0); ALKALINE PHOSPHATASE 93 U/L (38-126); ANION GAP 12 (5-19); ASPARTATE AMINO TRANSFERASE 18 U/L (14-36); BILIRUBIN,DIRECT 0.1 mg/dL (0.0-0.4); BILIRUBIN,TOTAL 0.4 mg/dL (0.2-1.3); BLOOD UREA NITROGEN 14 mg/dL (7-20); CALCIUM 9.9 mg/dL (8.4-10.2); CARBON DIOXIDE 26 mmol/L (22-30); CHLORIDE 103 mmol/L (98-107); GLUCOSE 92 mg/dL (75-110); POTASSIUM 4.3 mmol/L (3.6-5.0); TOTAL PROTEIN 7.8 g/dL (6.3-8.2)
--- NOTE | 2019-01-24 22:09 | ER Document Report ---
ED General - General Chief Complaint: Abdominal Pain Stated Complaint: ABDOMINAL PAIN Time Seen by Provider: 01/24/19 19:46 Primary Care Provider: SHIRLENE WARD MD [Primary Care Provider] - Follow up as needed Mode of Arrival: Ambulatory TRAVEL OUTSIDE OF THE [place] IN LAST 30 DAYS: No - HPI Notes: Patient is a 23-year-old female who presents emergency department for evaluation of headache, generalized body aches, cramping. She had a medically induced about 2 months ago. Her symptoms been ongoing since then. The vaginal bleeding stopped, she describes a physiological white vaginal discharge. She states she has had nausea but no emesis. She is had some loose stools over the last week. She generally just has some vague somatic complaints, no trey fevers to her knowledge. She states she has had some night sweats. She was seen for this a be in [place], but cannot make it there for follow-up. - Related Data Allergies/Adverse Reactions: No Known Allergies Allergy (Verified 10/02/17 15:44) Home Medications: none Past Medical History - General Information source: Patient - Social History Smoking Status: Never Smoker Chew tobacco use (# tins/day): No Frequency of alcohol use: Rare Drug Abuse: Marijuana Family History: Reviewed & Not Pertinent Patient has suicidal ideation: No Patient has homicidal ideation: No - Past Medical History Cardiac Medical History: Reports: Hx Hypertension Denies: Hx Congestive Heart Failure, Hx Heart Attack Pulmonary Medical History: Reports: Hx Asthma Denies: Hx Bronchitis, Hx COPD, Hx Pneumonia, Hx Tuberculosis Neurological Medical History: Denies: Hx Seizures, Hx Parkinson's Disease Renal/ Medical History: Denies: Hx End Stage Renal Disease, Hx Kidney Stones, Hx Peritoneal Dialysis GI Medical History: Reports: Hx Gastroesophageal Reflux Disease. Denies: Hx Ulcer Musculoskeletal Medical History: Denies Hx Arthritis Psychiatric Medical History: Denies: Hx Bipolar Disorder, Hx Depression, Hx Schizophrenia Past Surgical History: Reports: Hx Adenoidectomy, Hx Tonsillectomy - Immunizations Hx Diphtheria, Pertussis, Tetanus Vaccination: Yes Review of Systems - Review of Systems Constitutional: See HPI EENT: No symptoms reported Cardiovascular: No symptoms reported Respiratory: No symptoms reported Gastrointestinal: See HPI Genitourinary: No symptoms reported Female Genitourinary: See HPI Musculoskeletal: See HPI Skin: No symptoms reported Neurological/Psychological: No symptoms reported Physical Exam - Vital signs Vitals: Temp Pulse Resp BP Pulse Ox 97.7 F 73 18 109/69 98 01/24/19 19:44 01/24/19 19:44 01/24/19 19:44 01/24/19 19:44 01/24/19 19:44 - Notes Notes: Vital signs reviewed, please refer to chart. Head is normocephalic, atraumatic. Pupils equal round, reactive to light. Neck is supple without meningismus. Heart is regular rate and rhythm. Lungs are clear to auscultation bilaterally. Abdomen is soft, nontender, normoactive bowel sounds throughout. Extremities without cyanosis, clubbing. Posterior calves are nontender. Peripheral pulses are equal. Skin is warm and dry. Patient is awake, alert, neurological exam is nonfocal. Course - Re-evaluation Re-evalutation: 01/24/19 22:09 Patient presents to the emergency department for evaluation of generalized vague aches and pains. This is all following a medically induced . Her laboratory investigations lites are unremarkable. Pelvic exam will be performed. Patient states she is in a sexually monogamous relationship at this time. We will continue to monitor. 01/24/19 22:31 I was notified that the patient wants to leave. She does not want to stay for the pelvic exam. It was explained the patient that this could be a source of infection or ongoing issue. Could be responsible for her symptoms. I advised her that it would be most appropriate to stay, certainly a significant infection of some sort could be causing all of her symptoms and may eventually be life or fertility threatening. She voiced understanding to this and still wants to leave. She will be leaving AGAINST MEDICAL ADVICE. She is told she can return at any time, she is given referral on [facility], is to return to the ED with worsening. - Vital Signs Vital signs: Temp Pulse Resp BP Pulse Ox 97.7 F 73 18 109/69 98 01/24/19 19:44 01/24/19 19:44 01/24/19 19:44 01/24/19 19:44 01/24/19 19:44 - Laboratory Result Diagrams: 01/24/19 20:03 01/24/19 20:03 Laboratory results interpreted by me: 01/24/19 19:50 Urine Blood MODERATE H Discharge - Discharge Clinical Impression: Pelvic pain Condition: Stable Disposition: HOME, SELF-CARE Instructions: Pelvic Pain ([facility]) Additional Instructions: You have elected to leave AGAINST MEDICAL ADVICE, before your pelvic exam could be performed. Please be aware that any undetected infection or complication in that area may be responsible for your symptoms, and could lead to serious complications and even . Please follow-up with gynecology as soon as possible. A referral has been placed, contact and provider below. If you change your mind regarding completion of your assessment, please return to the emergency department at any time. Referrals: SHIRLENE WARD MD [Primary Care Provider] - Follow up as needed HUY BHAT MD [ACTIVE STAFF] - Follow up as needed
== END | disposition home or self-care (01) ==
LOC: ER 19:40
DX: R10.2 Pelvic and perineal pain (principal); R51 Headache; N89.8 Other specified noninflammatory disorders of vagina; R11.0 Nausea; R19.4 Change in bowel habit; R61 Generalized hyperhidrosis; I10 Essential (primary) hypertension; J45.909 Unspecified asthma, uncomplicated; Z53.20 Procedure and treatment not carried out because of patient's decision for unspecified reasons
CPT/HCPCS: 36415; 80053; 81001; 84703; 85025

== ENCOUNTER → 2019-04-02 | Outpatient (CLI) | payer MEDICAID ==
--- NOTE | 2019-04-02 16:12 | RADIOLOGY REPORT (SQ) ---
EXAM DESCRIPTION: U/S OB TRANSVAGINAL W/O DOP COMPLETED DATE/TIME: 04/02/2019 1:46 pm REASON FOR STUDY: ENCTR FOR SUPERVISION OF OTHER NORMAL , 1ST TRIMESTER (Z34.81) Z34.81 EN COUNTER FOR SUPRVSN OF NORMAL , FIRST TRIM COMPARISON: None. TECHNIQUE: Transvaginal static and realtime grayscale images acquired of the pelvis. Additional nikky cted spectral and color Doppler images recorded. All images stored on PACs. bHCG: Not available. CLINICAL DATES: 6 weeks 3 days LIMITATIONS: None. FINDINGS: FETUS: Single Living intrauterine . ULTRASOUND EGA: 6 weeks 3 days. ULTRASOUND RONEL: 11/23/2019 EFW: Not applicable less than 20 weeks. CRL: 0.4 cm FHR: 163 beats per minute. SURVEY: Too early to assess. AMNIOTIC FLUID: Adequate amount. PLACENTA: Not yet developed due to early gestation. SUBCHORIONIC BLEED: No SIZE OF BLEED: Not applicable. UTERUS: No masses. No anomalies. CERVICAL LENGTH: 1.9 cm Closed. RIGHT ADNEXA: Normal ovary with normal vascular flow. 3.6 x 3.2 x 2.1 cm. There is a 2.3 x 2.5 x 1. 7 cm corpus luteum. No adnexal free fluid. No adnexal masses. LEFT ADNEXA: Normal ovary with normal vascular flow. 3 x 2 x 1.7 cm. No adnexal free fluid. No adnexal masses. FREE FLUID: None. OTHER: No other significant finding. IMPRESSION: LIVING INTRAUTERINE . EGA 6 weeks 3 days. Trimester of : First trimester - 0 to 13 weeks. TECHNICAL DOCUMENTATION: JOB ID: [id number]- All Rights Reserved rev Reading location - IP/workstation name: [email or web address]
== END ==
LOC: RAD 12:49
PROVIDERS: ATTEND Nurse Practitioner Family
DX: Z34.81 Encounter for supervision of other normal pregnancy, first trimester (principal); Z3A.01 Less than 8 weeks gestation of pregnancy
CPT/HCPCS: 76817

== ENCOUNTER 2019-04-29 10:20 | Emergency (ER) | payer MEDICAID ==
--- NOTE | 2019-04-29 11:14 | ER Document Report ---
ED Medical Screen (RME) - General Chief Complaint: Abdominal Pain Stated Complaint: ABDOMINAL PAIN/NAUSEA Time Seen by Provider: 04/29/19 11:11 Primary Care Provider: MARILYN ANDRES ARNP [Primary Care Provider] - Follow up as needed Mode of Arrival: Ambulatory Information source: Patient Notes: 23-year-old female presents to ED for epigastric pain with nausea and vomiting. She is 10 weeks 3 para 2. She is been having hyperemesis since week 6. She states this pain is different than the normal just nausea and vomiting from her . She denies any fevers. She states she had pork last night and the pain started this morning. I have greeted and performed a rapid initial assessment of this patient. A comprehensive ED assessment and evaluation of the patient, analysis of test results and completion of medical decision making process will be conducted by an additional ED providers. TRAVEL OUTSIDE OF THE [place] IN LAST 30 DAYS: No - Related Data Allergies/Adverse Reactions: No Known Allergies Allergy (Verified 04/29/19 11:11) Past Medical History - Past Medical History Cardiac Medical History: Reports: Hx Hypertension Denies: Hx Congestive Heart Failure, Hx Heart Attack Pulmonary Medical History: Reports: Hx Asthma Denies: Hx Bronchitis, Hx COPD, Hx Pneumonia, Hx Tuberculosis Neurological Medical History: Denies: Hx Seizures, Hx Parkinson's Disease Renal/ Medical History: Denies: Hx End Stage Renal Disease, Hx Kidney Stones, Hx Peritoneal Dialysis GI Medical History: Reports: Hx Gastroesophageal Reflux Disease. Denies: Hx Ulcer Musculoskeltal Medical History: Denies Hx Arthritis Psychiatric Medical History: Denies: Hx Bipolar Disorder, Hx Depression, Hx Schizophrenia Past Surgical History: Reports: Hx Adenoidectomy, Hx Tonsillectomy - Immunizations Hx Diphtheria, Pertussis, Tetanus Vaccination: Yes Physical Exam - Vital signs Vitals: Temp Pulse Resp BP Pulse Ox 98.0 F 99 20 118/93 H 98 04/29/19 10:04/29/19 10:04/29/19 10:04/29/19 10:04/29/19 10:27 Course - Vital Signs Vital signs: Temp Pulse Resp BP Pulse Ox 98.0 F 99 20 118/93 H 98 04/29/19 10:04/29/19 10:04/29/19 10:04/29/19 10:27 04/29/19 10:27 Doctor's Discharge - Discharge Referrals: MARILYN ANDRES ARNP [Primary Care Provider] - Follow up as needed
[2019-04-29] MEDS ORDERED: NORMAL SALINE 1000 ML 1,000 ML IV ONE (11:15)
[2019-04-29] MEDS ORDERED: ONDANSETRON 4 MG TAB.RAPDIS PO ONE (11:15)
[2019-04-29 11:17] VITALS: BP 118/50
[2019-04-29 12:50] LABS: APPEARANCE,URINE SLIGHTLY-CLOUDY; BILIRUBIN,URINE NEGATIVE (NEGATIVE); COLOR,URINE YELLOW; GLUCOSE, URINE NEGATIVE (NEGATIVE); KETONES,URINE 80 mg/dL (NEGATIVE); PROTEIN,URINE 100 mg/dL (NEGATIVE); URINE SPECIFIC GRAVITY 1.024; UROBILINOGEN,URINE NEGATIVE mg/dL (<2.0)
== END 2019-04-29 14:35 | disposition left against medical advice (07) ==
LOC: ER 10:20
DX: O26.91 Pregnancy related conditions, unspecified, first trimester (principal); R10.9 Unspecified abdominal pain; R10.13 Epigastric pain; R11.2 Nausea with vomiting, unspecified; Z3A.10 10 weeks gestation of pregnancy
CPT/HCPCS: 81001; S0119

== ENCOUNTER 2019-04-29 23:23 | Emergency (ER) | payer MEDICAID ==
[2019-04-30 00:25] VITALS: BP 106/72
[2019-04-30] MEDS ORDERED: FAMOTIDINE INJ/PF 20 MG/2 ML SDV IV ONE (00:29)
[2019-04-30] MEDS ORDERED: NORMAL SALINE 1000 ML 1,000 ML IV ONE ×2 (00:29→04:00)
[2019-04-30] MEDS ORDERED: METOCLOPRAMIDE HCL INJ/PF 10 MG/2 ML SDV IV ONE (00:29)
--- NOTE | 2019-04-30 00:31 | ER Document Report ---
ED Medical Screen (RME) - General Chief Complaint: Epigastric Pain Stated Complaint: ABDOMINAL PAIN Time Seen by Provider: 04/30/19 00:23 Primary Care Provider: MARILYN ANDRES ARNP [Primary Care Provider] - Follow up as needed Notes: Patient is a who presents emergency department with a chief complaint of vomiting. Patient reports she is currently about 10 weeks . Patient reports [facility] Patient reports that she was seen here earlier but left due to the weight. Patient has a history of scar tissue in her stomach, each pylori hyperemesis. Patient reports EMS did give Zofran 4 mg IM with no relief. Patient reports he is on a lot of acid reflux. Patient reports upper abdominal pain. TRAVEL OUTSIDE OF THE [place] IN LAST 30 DAYS: No - Related Data Allergies/Adverse Reactions: No Known Allergies Allergy (Verified 04/30/19 00:16) Home Medications: Prenatals Past Medical History - Past Medical History Cardiac Medical History: Reports: Hx Hypertension Denies: Hx Congestive Heart Failure, Hx Heart Attack Pulmonary Medical History: Reports: Hx Asthma Denies: Hx Bronchitis, Hx COPD, Hx Pneumonia, Hx Tuberculosis Neurological Medical History: Denies: Hx Seizures, Hx Parkinson's Disease Renal/ Medical History: Denies: Hx End Stage Renal Disease, Hx Kidney Stones, Hx Peritoneal Dialysis GI Medical History: Reports: Hx Gastroesophageal Reflux Disease. Denies: Hx Ulcer Musculoskeltal Medical History: Denies Hx Arthritis Psychiatric Medical History: Denies: Hx Bipolar Disorder, Hx Depression, Hx Schizophrenia Past Surgical History: Reports: Hx Adenoidectomy, Hx Tonsillectomy - Immunizations Hx Diphtheria, Pertussis, Tetanus Vaccination: Yes Physical Exam - Vital signs Vitals: Temp Pulse Resp BP Pulse Ox 98.2 F 90 16 106/72 97 04/30/19 00:18 04/30/19 00:18 04/30/19 00:18 04/30/19 00:18 04/30/19 00:18 Course - Re-evaluation Re-evalutation: 04/30/19 00:30 Patient has generalized abdominal pain with tenderness upon palpation. Abdomen is soft. Will initiate basic labs, IV, IV fluids. I have greeted and performed a rapid initial assessment of this patient. A comprehensive ED assessment and evaluation of the patient, analysis of test results and completion of the medical decision making process will be conducted by additional ED providers. Patient's not tachycardic, hypotensive or febrile at this time. - Vital Signs Vital signs: Temp Pulse Resp BP Pulse Ox 98.2 F 90 16 106/72 97 04/30/19 00:18 04/30/19 00:18 04/30/19 00:18 04/30/19 00:18 04/30/19 00:18 Doctor's Discharge - Discharge Referrals: MARILYN ANDRES ARNP [Primary Care Provider] - Follow up as needed
[2019-04-30 02:57] LABS: ABSOLUTE LYMPHOCYTES (AUTO) 1.8 10^3/uL (0.5-4.7); ABSOLUTE MONOCYTES (AUTO) 0.8 10^3/uL (0.1-1.4); ABSOLUTE NEUT (AUTO) 8.1 10^3/uL (1.7-8.2); BASOPHILS % (AUTO) 0.4 % (0-2); EOSINOPHILS % (AUTO) 0.2 % (0-6); HEMATOCRIT 36.9 % (36.0-47.0); HEMOGLOBIN 12.8 g/dL (12.0-15.5); LYMPHOCYTES % (AUTO) 16.6 % (13-45); MEAN CORPUSCULAR HGB CONC 34.8 g/dL (32.0-36.0); MEAN CORPUSCULAR VOLUME 86 fl (80-97); MONOCYTES % (AUTO) 7.3 % (3-13); PLATELET COUNT 281 10^3/uL (150-450); RED BLOOD COUNT 4.28 10^6/uL (3.72-5.28); RED CELL DISTRIBUTION WIDTH 13.3 % (11.5-14.0); SEGMENTED NEUTROPHILS % (AUTO) 75.5 % (42-78); TOTAL CELLS COUNTED % (AUTO) 100 %; WHITE BLOOD COUNT 10.7 10^3/uL (4.0-10.5)
[2019-04-30 03:17] LABS: ALBUMIN 3.9 g/dL (3.5-5.0); ALKALINE PHOSPHATASE 70 U/L (38-126); ANION GAP 13 (5-19); ASPARTATE AMINO TRANSFERASE 24 U/L (14-36); BILIRUBIN,DIRECT 0.2 mg/dL (0.0-0.4); BILIRUBIN,TOTAL 0.5 mg/dL (0.2-1.3); BLOOD UREA NITROGEN 7 mg/dL (7-20); CALCIUM 9.2 mg/dL (8.4-10.2); CARBON DIOXIDE 22 mmol/L (22-30); CHLORIDE 100 mmol/L (98-107); GLUCOSE 96 mg/dL (75-110); POTASSIUM 3.6 mmol/L (3.6-5.0); TOTAL PROTEIN 6.8 g/dL (6.3-8.2)
[2019-04-30 03:29] LABS: APPEARANCE,URINE SLIGHTLY-CLOUDY; BILIRUBIN,URINE NEGATIVE (NEGATIVE); COLOR,URINE AMBER; GLUCOSE, URINE NEGATIVE (NEGATIVE); KETONES,URINE 80 mg/dL (NEGATIVE); LEUKOCYTE ESTERASE,URINE NEGATIVE (NEGATIVE); NITRITE,URINE NEGATIVE (NEGATIVE); PROTEIN,URINE 100 mg/dL (NEGATIVE); URINE SPECIFIC GRAVITY 1.031
[2019-04-30] MEDS ORDERED: DIPHENHYDRAMINE HCL 50 MG/ML VIAL IV ONE ×2 (03:30→05:13)
[2019-04-30] MEDS ORDERED: MAG HYDROX/AL HYDROX/SIMETH SUSP 30 ML UDCUP PO ONE (03:30)
[2019-04-30] MEDS ORDERED: LIDOCAINE 2% VISCOUS SOLN 15 ML UDCUP PO ONE (03:30)
--- NOTE | 2019-04-30 03:33 | ER Document Report ---
ED GI/ - General Chief Complaint: Epigastric Pain Stated Complaint: ABDOMINAL PAIN Time Seen by Provider: 04/30/19 00:23 Notes: Patient is a 23-year-old female that comes emergency department chief complaint of vomiting during first trimester . She is G3, P2 at 10 weeks gestation by first trimester ultrasound performed at this facility. She states that she vomited more than 10 times today, she complains of burning in her upper abdomen and bad reflux. She denies fever, vaginal bleeding, dysuria, flank pain. She states that she has had an endoscopy before and it showed stomach ulcers, she has had H. pylori in the past and been treated for this by GI. This was in 2016. She came by EMS, was given Zofran 4 mg IM with no relief reportedly. She denies any daily medications or surgeries. She denies smoking, alcohol, recreational drugs. TRAVEL OUTSIDE OF THE [place] IN LAST 30 DAYS: No - Related Data Allergies/Adverse Reactions: No Known Allergies Allergy (Verified 04/30/19 00:16) Home Medications: Prenatals Past Medical History - General Information source: Patient - Social History Smoking Status: Never Smoker Frequency of alcohol use: None Drug Abuse: None Lives with: Family Family History: Reviewed & Not Pertinent Patient has suicidal ideation: No Patient has homicidal ideation: No - Past Medical History Cardiac Medical History: Reports: Hx Hypertension Denies: Hx Congestive Heart Failure, Hx Heart Attack Pulmonary Medical History: Reports: Hx Asthma Denies: Hx Bronchitis, Hx COPD, Hx Pneumonia, Hx Tuberculosis Neurological Medical History: Denies: Hx Seizures, Hx Parkinson's Disease Renal/ Medical History: Denies: Hx End Stage Renal Disease, Hx Kidney Stones, Hx Peritoneal Dialysis GI Medical History: Reports: Hx Gastroesophageal Reflux Disease. Denies: Hx Ulcer Musculoskeletal Medical History: Denies Hx Arthritis Psychiatric Medical History: Denies: Hx Bipolar Disorder, Hx Depression, Hx Schizophrenia Past Surgical History: Reports: Hx Adenoidectomy, Hx Tonsillectomy - Immunizations Hx Diphtheria, Pertussis, Tetanus Vaccination: Yes Review of Systems - Review of Systems Constitutional: No symptoms reported EENT: No symptoms reported Cardiovascular: No symptoms reported Respiratory: No symptoms reported Gastrointestinal: See HPI Genitourinary: No symptoms reported Female Genitourinary: See HPI Musculoskeletal: No symptoms reported Skin: No symptoms reported Hematologic/Lymphatic: No symptoms reported Neurological/Psychological: See HPI Physical Exam - Vital signs Vitals: Temp Pulse Resp BP Pulse Ox 98.2 F 90 16 106/72 97 04/30/19 00:18 04/30/19 00:18 04/30/19 00:18 04/30/19 00:18 04/30/19 00:18 - Notes Notes: GENERAL: Alert, talks loudly, appears anxious but does not appear to be in pain HEAD: Normocephalic, atraumatic. EYES: Pupils equal, round, and reactive to light. Extraocular movements intact. ENT: Oral mucosa dry, tongue midline. Oropharynx unremarkable. Airway patent. LUNGS: Clear to auscultation bilaterally, no wheezes, rales, or rhonchi. No respiratory distress. HEART: Regular rate and rhythm. No murmur ABDOMEN: Nonspecific generalized tenderness, no guarding GENITOURINARY: Deferred EXTREMITIES: Moves all 4 extremities spontaneously. No edema, normal radial and dorsalis pedis pulses bilaterally. No cyanosis. BACK: no cervical, thoracic, lumbar midline tenderness. No saddle anesthesia, normal distal neurovascular exam. NEUROLOGICAL: Alert and oriented x3. Normal speech. Cranial nerves II through X II grossly intact. PSYCH: Restless, anxious SKIN: Warm, dry, normal turgor. No rashes or lesions noted. Course - Re-evaluation Re-evalutation: On my evaluation patient is restless, appears to recently been crying, tells me that she has reflux and "needs emergent Maalox". She was provided with this along with viscous lidocaine, provided with IV nausea medication and IV fluids. Her vital signs are unremarkable, she is actually quite well-appearing, her physical exam is also unremarkable. She is not bleeding. She has no fever. CBC, chemistry, lipase, urinalysis unremarkable except for urine showing 80 ketones and dehydration. She was given another bag of IV fluids, additional nausea medication on request. After this she was asking for a popsicle. Patient was provided with this, tolerating p.o. very well. Patient asked if she was going to be discharged, requested nausea medication at home, specifically requested Zofran because she states the other medications do not help her. I provided her with this. I was told that patient became extremely upset and was yelling at the nursing staff that we were not addressing her pain, however I was also informed that patient took her discharge instructions in the left before I came back to evaluate her. - Vital Signs Vital signs: Temp Pulse Resp BP Pulse Ox 98.2 F 90 16 106/72 97 04/30/19 00:18 04/30/19 00:18 04/30/19 00:18 04/30/19 00:18 04/30/19 00:18 - Laboratory Result Diagrams: 04/30/19 02:49 04/30/19 02:49 Laboratory results interpreted by me: 04/30/19 04/30/19 04/30/19 02:49 02:49 03:07 WBC 10.7 H Sodium 135.2 L Urine Protein 100 H Urine Ketones 80 H Urine Urobilinogen 2.0 H Discharge - Discharge Clinical Impression: Vomiting affecting , Dehydration, Epigastric pain Condition: Stable Disposition: HOME, SELF-CARE Additional Instructions: You have been treated for dehydration and vomiting affecting . Take Zofran if needed for nausea, you can take Benadryl with this as well, start with clear fluids and bland diet and slowly progress. Follow-up closely with [facility] for additional management. Return for any concerning symptoms including uncontrolled vomiting, fever, or any other concerning or worsening symptoms. Prescriptions: Ondansetron [Zofran Odt 4 mg Tablet] 1 - 2 tab PO Q4H PRN #20 tab.rapdis PRN Reason: For Nausea/Vomiting
[2019-04-30] MEDS ORDERED: ONDANSETRON HCL INJ/PF 4 MG/2 ML SDV IV ONE (05:12)
== END 2019-04-30 06:24 | disposition home or self-care (01) ==
LOC: ER 23:23
DX: O21.9 Vomiting of pregnancy, unspecified (principal); O99.281 Endocrine, nutritional and metabolic diseases complicating pregnancy, first trimester; E86.0 Dehydration; O99.611 Diseases of the digestive system complicating pregnancy, first trimester; K21.9 Gastro-esophageal reflux disease without esophagitis; O26.891 Other specified pregnancy related conditions, first trimester; R10.13 Epigastric pain; R10.817 Generalized abdominal tenderness; O99.511 Diseases of the respiratory system complicating pregnancy, first trimester; J45.909 Unspecified asthma, uncomplicated; O16.1 Unspecified maternal hypertension, first trimester; Z3A.10 10 weeks gestation of pregnancy
CPT/HCPCS: 36415; 87086; 83690; 85025; 80053; 81001; J1200; J3490 ×2; J2765; J2405; J7030; S0028; 96361; 96374; 96375; 96376; 99284